=== PATIENT | male | born 1945 | race Caucasian/White ===

== ENCOUNTER 2017-04-16 17:16 | Inpatient (IN) | payer MEDICARE, BC ==
[~2017-04-16] VITALS: Ht 180.3 cm; Wt 127.7 kg
[2017-04-16] MEDS ORDERED: methylPREDNISolone sod succ 125mg/2ml vial IV ONE (17:30)
[2017-04-16] MEDS ORDERED: ipratropium/albuterol 3ml nebule NEB ONE (17:30)
[2017-04-16 18:00] LABS: ABG BASE EXCESS -3.3 mmol/L (-2.0-3.0); ABG HCO3 24.1 mmol/L (22.0-26.0); ABG PCO2 (T) 53.4 mmHg (35.0-48.0); ABG PH (T) 7.272 (7.350-7.450); ABG PO2 (T) 67.9 mmHg (83-108); ALLEN'S TEST Positive; FCOHb 1.7 % (0.5-1.5); FMetHb 0.3 % (0.3-1.12); FO2Hb 90.2 % (94-100); PEEP 8 cm H2O; TOTAL HEMOGLOBIN 12.5 G/dl (14.0-18.0)
[2017-04-16 19:05] LABS: ALANINE AMINOTRANSFERASE 20 U/L (12-78); ALBUMIN 3.9 G/DL (3.4-5.0); ALBUMIN/GLOBULIN RATIO 1.1 (1.1-1.5); ALKALINE PHOSPHATASE 65 IU/L (46-116); ANION GAP 16 (8-16); ASPARTATE AMINO TRANSFERASE 22 U/L (10-37); BILIRUBIN,TOTAL 0.7 MG/DL (0.1-1.0); BLOOD UREA NITROGEN 44 MG/DL (7-18); BUN/CREATININE RATIO 3.9 (5.4-32.0); CALCIUM 9.1 MG/DL (8.5-10.1); CHLORIDE 103 MMOL/L (99-107); CREATININE 11.31 MG/DL (0.60-1.10); GLUCOSE 51 MG/DL (70-104); SODIUM 145 MMOL/L (135-145); TOTAL PROTEIN 7.5 G/DL (6.4-8.2); eGFR 4 ML/MIN
[2017-04-16 19:14] LABS: POTASSIUM 6.1 MMOL/L (3.5-5.1)
[2017-04-16] MEDS ORDERED: hydrALAZINE 20mg/ml inj. IV ONE (19:30)
[2017-04-16] MEDS ORDERED: nitroGLYCERIN 0.4mg/hour patch TD ONE (19:30)
[2017-04-16] MEDS ORDERED: NIFEdipine XL 30mg tablet PO STA (20:00)
[2017-04-16] MEDS ORDERED: acetaminophen 325mg tablet PO PRN ×2 (20:05)
[2017-04-16] MEDS ORDERED: HYDROcodone/acetaminophen 10/325mg tab PO PRN (20:05)
[2017-04-16] MEDS ORDERED: ondansetron/PF 4mg/2ml inj IV PRN (20:05)
[2017-04-16] MEDS ORDERED: hydrALAZINE 20mg/ml inj. IV PRN (20:05)
[2017-04-16 20:40] LABS: BASOPHILS % (AUTO) 0 % (0-1); EOSINOPHILS # (AUTO) 0.1 X10'3 (0-0.9); EOSINOPHILS % (AUTO) 1.6 % (0-6); HEMATOCRIT 36.3 % (42.0-52.0); HEMOGLOBIN 12.3 g/dl (14.0-17.9); LYMPHOCYTES # (AUTO) 0.2 X10'3 (1.1-4.8); LYMPHOCYTES % (AUTO) 3.9 % (21-51); MEAN PLATELET VOLUME 6.5 FL (7.4-10.4); MONOCYTES # (AUTO) 0.1 X10'3 (0-0.9); MONOCYTES % (AUTO) 1.8 % (2-12); NEUTROPHILS # (AUTO) 5.6 X10'3 (1.8-7.7); NEUTROPHILS % (AUTO) 92.7 % (42-75); PLATELET COUNT 166 X10'3 (140-440); RED BLOOD COUNT 3.74 X10'6 (4.70-6.10); RED CELL DISTRIBUTION WIDTH 16.7 % (11.5-14.5); WHITE BLOOD COUNT 6.1 X10'3 (4.5-11.0)
[2017-04-16 20:53] LABS: PARTIAL THROMBOPLASTIN TIME 31 SECONDS (22-32); PROTHROMBIN TIME 10.7 SECONDS (9.0-12.0)
[2017-04-16 20:55] VITALS: BP 173/75
[2017-04-16] MEDS: albuterol 2.5 MG/3 ML nebule NEB PRN (21:44)
[2017-04-16 22:00] VITALS: BP_SYST 146; BP_SYST 151; BP_DIAS 69; BP_DIAS 84
[2017-04-16] MEDS ORDERED: OMEP40CA37 PO (22:10)
[2017-04-16] MEDS ORDERED: MULT-1161 (22:10)
[2017-04-16] MEDS ORDERED: LOSA100T28 PO (22:10)
[2017-04-16] MEDS ORDERED: NIFE30TA95 PO (22:10)
[2017-04-16] MEDS ORDERED: BUME2TAB3 PO (22:10)
[2017-04-16] MEDS ORDERED: GLIP10TA11 PO (22:10)
[2017-04-16] MEDS ORDERED: ALBU18HF2 INH (22:10)
[2017-04-16 23:09] LABS: HEMOGLOBIN A1C 7.8 % (4.5-6.2)
[2017-04-17 02:00] VITALS: BP 166/76
[2017-04-17 06:00] VITALS: BP 168/77
[2017-04-17 06:33] LABS: BASOPHILS % (AUTO) 0.1 % (0-1); EOSINOPHILS # (AUTO) 0.1 X10'3 (0-0.9); EOSINOPHILS % (AUTO) 1.1 % (0-6); HEMATOCRIT 33.8 % (42.0-52.0); HEMOGLOBIN 11.4 g/dl (14.0-17.9); LYMPHOCYTES # (AUTO) 0.2 X10'3 (1.1-4.8); LYMPHOCYTES % (AUTO) 4.3 % (21-51); MEAN CORPUSCULAR HEMOGLOBIN 33.3 PG (27.0-31.0); MEAN CORPUSCULAR HGB CONC 33.8 % (33.0-36.5); MEAN CORPUSCULAR VOLUME 98.4 FL (78-98); MEAN PLATELET VOLUME 6.9 FL (7.4-10.4); MONOCYTES # (AUTO) 0.1 X10'3 (0-0.9); MONOCYTES % (AUTO) 2.6 % (2-12); NEUTROPHILS # (AUTO) 4.9 X10'3 (1.8-7.7); NEUTROPHILS % (AUTO) 91.9 % (42-75); PLATELET COUNT 150 X10'3 (140-440); RED BLOOD COUNT 3.43 X10'6 (4.70-6.10); RED CELL DISTRIBUTION WIDTH 16.7 % (11.5-14.5); WHITE BLOOD COUNT 5.3 X10'3 (4.5-11.0)
[2017-04-17] MEDS ORDERED: non-formulary drug (Albuterol Sulfate (Ventolin Hfa) 2 PUFFS) INH SCH (06:35)
[2017-04-17 06:46] LABS: ALANINE AMINOTRANSFERASE 25 U/L (12-78); ALBUMIN 3.7 G/DL (3.4-5.0); ALBUMIN/GLOBULIN RATIO 1.1 (1.1-1.5); ALKALINE PHOSPHATASE 59 IU/L (46-116); ANION GAP 18 (8-16); ASPARTATE AMINO TRANSFERASE 18 U/L (10-37); BILIRUBIN,TOTAL 0.8 MG/DL (0.1-1.0); BLOOD UREA NITROGEN 55 MG/DL (7-18); BUN/CREATININE RATIO 4.6 (5.4-32.0); CALCIUM 8.3 MG/DL (8.5-10.1); CHLORIDE 100 MMOL/L (99-107); CREATININE 11.97 MG/DL (0.60-1.10); GLUCOSE 250 MG/DL (70-104); MAGNESIUM 2.2 MG/DL (1.5-2.4); PHOSPHORUS 8.3 MG/DL (2.3-4.5); SODIUM 141 MMOL/L (135-145); TOTAL CARBON DIOXIDE 22.8 MMOL/L (24-32); TOTAL PROTEIN 7.2 G/DL (6.4-8.2); eGFR 4 ML/MIN
[2017-04-17 07:15] LABS: POTASSIUM 7.4 MMOL/L (3.5-5.1)
[2017-04-17] MEDS ORDERED: insulin regular, human 10 units/0.1 ml syringe IV STA (07:22)
[2017-04-17] MEDS ORDERED: sodium bicarbonate (8.4%) 1 mEq/ml syringe IV STA (07:22)
[2017-04-17] MEDS ORDERED: sodium polystyrene sulfonate 15gm/60ml oral suspension PO STA (07:22)
[2017-04-17] MEDS ORDERED: dextrose 50%-water 50ml dispensing syringe IV STA (07:22)
[2017-04-17] MEDS ORDERED: albuterol 2.5 MG/3 ML nebule CONTNEB SCH (07:25)
[2017-04-17] MEDS ORDERED: LIDOcaine 1% (10mg/ml) 2ml vial SQ ONE (07:30)
[2017-04-17] MEDS: bumetanide 1mg tablet PO SCH ×3 (08:00→20:11)
[2017-04-17] MEDS: losartan 50mg tablet PO SCH (08:00)
[2017-04-17] MEDS: albuterol 2.5 MG/3 ML nebule NEB SCH ×3 (08:07→10:25)
[2017-04-17] MEDS: pantoprazole 40mg Tablet.DR PO SCH (08:47)
[2017-04-17] MEDS: glipizide 5mg tablet PO SCH ×2 (10:10→20:11)
[2017-04-17 11:00] VITALS: BP 113/67
[2017-04-17 15:00] VITALS: BP 125/73
[2017-04-17 18:00] VITALS: BP 157/72
[2017-04-17] MEDS ORDERED: NIFEdipine XL 30mg tablet PO SCH (21:00)
[2017-04-17 22:00] VITALS: BP 163/78
[2017-04-17] MEDS: albuterol 2.5 MG/3 ML nebule NEB PRN (22:33)
[2017-04-18 02:00] VITALS: BP 136/73
[2017-04-18 06:00] VITALS: BP 138/68
[2017-04-18 07:26] LABS: BASOPHILS % (AUTO) 0.2 % (0-1); EOSINOPHILS # (AUTO) 0.1 X10'3 (0-0.9); EOSINOPHILS % (AUTO) 1.6 % (0-6); HEMATOCRIT 35.8 % (42.0-52.0); HEMOGLOBIN 11.9 g/dl (14.0-17.9); LYMPHOCYTES # (AUTO) 0.5 X10'3 (1.1-4.8); LYMPHOCYTES % (AUTO) 10.6 % (21-51); MEAN CORPUSCULAR HEMOGLOBIN 32.6 PG (27.0-31.0); MEAN CORPUSCULAR HGB CONC 33.2 % (33.0-36.5); MEAN CORPUSCULAR VOLUME 98.1 FL (78-98); MEAN PLATELET VOLUME 6.6 FL (7.4-10.4); MONOCYTES # (AUTO) 0.5 X10'3 (0-0.9); MONOCYTES % (AUTO) 10.2 % (2-12); NEUTROPHILS # (AUTO) 3.5 X10'3 (1.8-7.7); NEUTROPHILS % (AUTO) 77.4 % (42-75); PLATELET COUNT 155 X10'3 (140-440); RED BLOOD COUNT 3.65 X10'6 (4.70-6.10); RED CELL DISTRIBUTION WIDTH 16.6 % (11.5-14.5); WHITE BLOOD COUNT 4.5 X10'3 (4.5-11.0)
[2017-04-18] MEDS: losartan 50mg tablet PO SCH (07:41)
[2017-04-18] MEDS: bumetanide 1mg tablet PO SCH ×2 (07:41→13:07)
[2017-04-18] MEDS: pantoprazole 40mg Tablet.DR PO SCH (07:41)
[2017-04-18 07:44] LABS: ALANINE AMINOTRANSFERASE 42 U/L (12-78); ALBUMIN 3.4 G/DL (3.4-5.0); ALBUMIN/GLOBULIN RATIO 1.1 (1.1-1.5); ALKALINE PHOSPHATASE 52 IU/L (46-116); ANION GAP 14 (8-16); ASPARTATE AMINO TRANSFERASE 34 U/L (10-37); BILIRUBIN,TOTAL 0.5 MG/DL (0.1-1.0); BLOOD UREA NITROGEN 42 MG/DL (7-18); BUN/CREATININE RATIO 4.7 (5.4-32.0); CHLORIDE 101 MMOL/L (99-107); CREATININE 8.97 MG/DL (0.60-1.10); GLUCOSE 120 MG/DL (70-104); MAGNESIUM 2.1 MG/DL (1.5-2.4); PHOSPHORUS 7.4 MG/DL (2.3-4.5); POTASSIUM 4.7 MMOL/L (3.5-5.1); SODIUM 143 MMOL/L (135-145); TOTAL CARBON DIOXIDE 28.3 MMOL/L (24-32); TOTAL PROTEIN 6.6 G/DL (6.4-8.2); eGFR 6 ML/MIN
[2017-04-18] MEDS: glipizide 5mg tablet PO SCH (07:59)
[2017-04-18 11:00] VITALS: BP 138/77
[2017-04-18] MEDS: albuterol 2.5 MG/3 ML nebule NEB PRN (12:01)
== END 2017-04-18 15:10 | disposition home or self-care (01) | DRG 682 ==
LOC: ER 17:17 → PCU 3S 20:13
PROVIDERS: ADMIT Internal Medicine Critical Care Medicine
PROC: 5A1D70Z Performance of Urinary Filtration, Intermittent, Less than 6 Hours Per Day (ICD-10-PCS; principal; 2017-04-17)
DX: I12.0 Hypertensive chronic kidney disease with stage 5 chronic kidney disease or end stage renal disease (principal); N18.6 End stage renal disease; J96.01 Acute respiratory failure with hypoxia; J81.0 Acute pulmonary edema; J44.1 Chronic obstructive pulmonary disease with (acute) exacerbation; E87.5 Hyperkalemia; E87.70 Fluid overload, unspecified; J06.9 Acute upper respiratory infection, unspecified; E11.22 Type 2 diabetes mellitus with diabetic chronic kidney disease; Z99.2 Dependence on renal dialysis; Z91.15 Patient's noncompliance with renal dialysis; Z79.84 Long term (current) use of oral hypoglycemic drugs; Z79.899 Other long term (current) drug therapy; Z87.891 Personal history of nicotine dependence
CPT/HCPCS: 36415; 36600; 71045; 80053; 82803; 82948; 83036; 83605; 83735; 83880; 84100; 84132; 84484; 85018; 85025; 85610; 85730; 87040; 87070; 87502; 87503; 93005; 94640; 94760; 96374; 96375; 99285; A6402; G0257; J0360; J1815; J2930; J3490; J7030

== ENCOUNTER 2017-04-19 22:50 | Inpatient (IN) | payer MEDICARE, BC ==
[~2017-04-19] VITALS: Ht 180.3 cm; Wt 122.0 kg
[~2017-04-19 22:50] MED LIST: ALBU18HF2 INH; BUME2TAB3 PO; GLIP10TA11 PO; LOSA100T28 PO; MULT-1161; NIFE30TA95 PO; OMEP40CA37 PO
[2017-04-19] MEDS ORDERED: ipratropium/albuterol 3ml nebule NEB ONE (23:00)
[2017-04-19] MEDS ORDERED: methylPREDNISolone sod succ 125mg/2ml vial IV ONE (23:05)
[2017-04-19] MEDS ORDERED: dextrose 50%-water 50ml dispensing syringe IV ONE (23:05)
[2017-04-19 23:33] LABS: BASOPHILS % (AUTO) 0.2 % (0-1); EOSINOPHILS # (AUTO) 0.1 X10'3 (0-0.9); EOSINOPHILS % (AUTO) 1.7 % (0-6); HEMATOCRIT 35.9 % (42.0-52.0); HEMOGLOBIN 12.2 g/dl (14.0-17.9); LYMPHOCYTES # (AUTO) 0.4 X10'3 (1.1-4.8); LYMPHOCYTES % (AUTO) 4.8 % (21-51); MEAN CORPUSCULAR HEMOGLOBIN 33.1 PG (27.0-31.0); MEAN CORPUSCULAR VOLUME 97.3 FL (78-98); MEAN PLATELET VOLUME 6.8 FL (7.4-10.4); MONOCYTES # (AUTO) 0.5 X10'3 (0-0.9); MONOCYTES % (AUTO) 6.8 % (2-12); NEUTROPHILS # (AUTO) 6.9 X10'3 (1.8-7.7); NEUTROPHILS % (AUTO) 86.5 % (42-75); PLATELET COUNT 165 X10'3 (140-440); RED CELL DISTRIBUTION WIDTH 16.7 % (11.5-14.5)
[2017-04-20 00:08] LABS: ALANINE AMINOTRANSFERASE 27 U/L (12-78); ALBUMIN 3.5 G/DL (3.4-5.0); ALBUMIN/GLOBULIN RATIO 0.9 (1.1-1.5); ALKALINE PHOSPHATASE 65 IU/L (46-116); ANION GAP 19 (8-16); ASPARTATE AMINO TRANSFERASE 18 U/L (10-37); BILIRUBIN,TOTAL 0.5 MG/DL (0.1-1.0); BLOOD UREA NITROGEN 66 MG/DL (7-18); BUN/CREATININE RATIO 5.5 (5.4-32.0); CALCIUM 8.4 MG/DL (8.5-10.1); CHLORIDE 101 MMOL/L (99-107); CREATININE 12.04 MG/DL (0.60-1.10); GLUCOSE 53 MG/DL (70-104); MAGNESIUM 2.3 MG/DL (1.5-2.4); POTASSIUM 4.3 MMOL/L (3.5-5.1); SODIUM 144 MMOL/L (135-145); TOTAL CARBON DIOXIDE 24.5 MMOL/L (24-32); TOTAL PROTEIN 7.4 G/DL (6.4-8.2); eGFR 4 ML/MIN
[2017-04-20 00:16] LABS: PARTIAL THROMBOPLASTIN TIME 32 SECONDS (22-32); PROTHROMBIN TIME 10.7 SECONDS (9.0-12.0)
[2017-04-20 00:20] LABS: CLARITY,URINE SLIGHTLY CLOUDY (Clear); COLOR,URINE YELLOW (Yellow); GLUCOSE, URINE NEGATIVE (Neg); KETONES,URINE NEGATIVE (Neg); LEUKOCYTE ESTERASE ,URINE NEGATIVE (Neg); NITRITES, URINE NEGATIVE (Neg); OCCULT BLOOD,URINE MODERATE (Neg); PROTEIN,URINE 100 mg/dl (Neg); UROBILINOGEN,URINE 0.2 E.U/dL (0.2-1.0)
[2017-04-20 00:25] LABS: UA COLLECTION TYPE STRAIGHT CATH
[2017-04-20 00:27] LABS: WBC,URINE NONE SEEN /HPF (0-4)
[2017-04-20 00:28] LABS: AMORPHOUS URATES 2+; BACTERIA,URINE NONE SEEN /HPF (Neg); MUCUS STRANDS NONE SEEN /LPF (Neg); SQUAMOUS EPITHELIAL CELL,UR FEW /LPF (FEW); TRANSITIONAL EPI CELLS,URINE FEW /HPF
[2017-04-20] MEDS ORDERED: dextrose ORAL solution 15 GM/59 ML bottle PO PRN ×2 (02:05)
[2017-04-20] MEDS ORDERED: dextrose 50%-water 50ml dispensing syringe IV PRN ×2 (02:05)
[2017-04-20] MEDS ORDERED: glucagon, human recombinant 1mg kit SUBCUT PRN (02:05)
[2017-04-20] MEDS ORDERED: MESSAGE TO PHARMACY PO ONE (02:05)
[2017-04-20] MEDS ORDERED: nitroGLYCERIN 1gm ointment UD TP ONE (02:10)
[2017-04-20] MEDS: bumetanide 1mg tablet PO SCH (07:32)
[2017-04-20] MEDS: losartan 50mg tablet PO SCH (07:32)
[2017-04-20] MEDS: heparin, porcine 5000 units/ml vial SQ SCH ×2 (07:33→20:43)
[2017-04-20] MEDS ORDERED: dextrose 50%-water 50ml dispensing syringe IV ONE (08:00)
[2017-04-20 08:59] LABS: C DIFFICILE TOXINS A&B NEGATIVE (Neg)
[2017-04-20 09:00] LABS: C DIFF ANTIGEN NEGATIVE (NEGATIVE); C DIFF SPECIMEN=DIARRHEA? ACCEPTABLE
[2017-04-20 11:20] VITALS: BP 164/77
[2017-04-20] MEDS: insulin Lispro (HumaLOG) vial - multi-dose SQ SCH ×2 (12:56→18:40)
[2017-04-20] MEDS ORDERED: heparin 1,000unit/ml 10ml vial 10 ML IV ONE (14:59)
[2017-04-20] MEDS ORDERED: normal saline 1000ml 250 ML IV PRN (14:59)
[2017-04-20 15:00] VITALS: BP 156/71
[2017-04-20] MEDS ORDERED: LIDOcaine 1% (10mg/ml) 2ml vial SQ ONE (15:00)
[2017-04-20] MEDS ORDERED: epoetin 20,000 units/ml inj IV ONE (15:00)
[2017-04-20] MEDS ORDERED: heparin 1,000 units/ml 10ml inj HE ONE ×2 (15:05)
[2017-04-20 15:51] LABS: BASOPHILS % (AUTO) 0 % (0-1); EOSINOPHILS # (AUTO) 0.1 X10'3 (0-0.9); EOSINOPHILS % (AUTO) 1.2 % (0-6); HEMATOCRIT 33.1 % (42.0-52.0); HEMOGLOBIN 11.3 g/dl (14.0-17.9); LYMPHOCYTES # (AUTO) 0.3 X10'3 (1.1-4.8); LYMPHOCYTES % (AUTO) 4.2 % (21-51); MEAN CORPUSCULAR HGB CONC 34.2 % (33.0-36.5); MEAN CORPUSCULAR VOLUME 96.3 FL (78-98); MEAN PLATELET VOLUME 6.9 FL (7.4-10.4); MONOCYTES # (AUTO) 0.2 X10'3 (0-0.9); MONOCYTES % (AUTO) 3.5 % (2-12); NEUTROPHILS # (AUTO) 6.3 X10'3 (1.8-7.7); NEUTROPHILS % (AUTO) 91.1 % (42-75); PLATELET COUNT 171 X10'3 (140-440); RED BLOOD COUNT 3.43 X10'6 (4.70-6.10); RED CELL DISTRIBUTION WIDTH 16.7 % (11.5-14.5)
[2017-04-20 18:00] VITALS: BP 155/84
[2017-04-20] MEDS: NIFEdipine XL 30mg tablet PO SCH (20:42)
[2017-04-20 22:00] VITALS: BP 151/72
[2017-04-21 02:00] VITALS: BP 103/58
[2017-04-21 05:58] LABS: INR 1.1 INR; PARTIAL THROMBOPLASTIN TIME 28 SECONDS (22-32); PROTHROMBIN TIME 10.9 SECONDS (9.0-12.0)
[2017-04-21 06:01] LABS: BASOPHILS % (AUTO) 0.1 % (0-1); EOSINOPHILS # (AUTO) 0.1 X10'3 (0-0.9); HEMATOCRIT 33.7 % (42.0-52.0); HEMOGLOBIN 11.4 g/dl (14.0-17.9); LYMPHOCYTES # (AUTO) 0.7 X10'3 (1.1-4.8); LYMPHOCYTES % (AUTO) 9.1 % (21-51); MEAN CORPUSCULAR HEMOGLOBIN 33.8 PG (27.0-31.0); MEAN CORPUSCULAR VOLUME 99.6 FL (78-98); MEAN PLATELET VOLUME 7.6 FL (7.4-10.4); MONOCYTES # (AUTO) 0.7 X10'3 (0-0.9); NEUTROPHILS # (AUTO) 6.7 X10'3 (1.8-7.7); NEUTROPHILS % (AUTO) 81.8 % (42-75); PLATELET COUNT 123 X10'3 (140-440); RED BLOOD COUNT 3.38 X10'6 (4.70-6.10); RED CELL DISTRIBUTION WIDTH 16.9 % (11.5-14.5); WHITE BLOOD COUNT 8.1 X10'3 (4.5-11.0)
[2017-04-21 06:20] LABS: ALANINE AMINOTRANSFERASE 28 U/L (12-78); ALBUMIN 3.3 G/DL (3.4-5.0); ALBUMIN/GLOBULIN RATIO 0.9 (1.1-1.5); ALKALINE PHOSPHATASE 55 IU/L (46-116); ANION GAP 18 (8-16); ASPARTATE AMINO TRANSFERASE 15 U/L (10-37); BILIRUBIN,TOTAL 0.5 MG/DL (0.1-1.0); BLOOD UREA NITROGEN 61 MG/DL (7-18); BUN/CREATININE RATIO 6.2 (5.4-32.0); CALCIUM 7.7 MG/DL (8.5-10.1); CHLORIDE 98 MMOL/L (99-107); CHOL/HDL RATIO 2.2 (0.00-4.99); CHOLESTEROL 119 MG/DL (0-200); CREATININE 9.79 MG/DL (0.60-1.10); GLUCOSE 141 MG/DL (70-104); HDL CHOLESTEROL 53 MG/DL (35-60); LDL CHOLESTEROL 50 MG/DL (50-100); MAGNESIUM 2.2 MG/DL (1.5-2.4); POTASSIUM 4.4 MMOL/L (3.5-5.1); SODIUM 140 MMOL/L (135-145); TOTAL CARBON DIOXIDE 24.3 MMOL/L (24-32); TOTAL PROTEIN 7.1 G/DL (6.4-8.2); TRIGLYCERIDES 95 MG/DL (20-135); eGFR 5 ML/MIN
[2017-04-21 07:00] VITALS: BP 150/81
[2017-04-21] MEDS: bumetanide 1mg tablet PO SCH (08:37)
[2017-04-21] MEDS: losartan 50mg tablet PO SCH (08:38)
[2017-04-21] MEDS: heparin, porcine 5000 units/ml vial SQ SCH ×2 (08:40→20:40)
[2017-04-21] MEDS: insulin Lispro (HumaLOG) vial - multi-dose SQ SCH (08:43)
[2017-04-21 11:00] VITALS: BP 177/60
[2017-04-21 15:00] VITALS: BP 133/69
[2017-04-21 19:00] VITALS: BP 129/84
[2017-04-21] MEDS: albuterol 2.5 MG/3 ML nebule NEB PRN (19:58)
[2017-04-21] MEDS: NIFEdipine XL 30mg tablet PO SCH (20:40)
[2017-04-21] MEDS ORDERED: bumetanide 1mg tablet PO STA (21:51)
[2017-04-21] MEDS ORDERED: nitroGLYCERIN 1gm ointment UD TP ONE (22:15)
[2017-04-21] MEDS: methylPREDNISolone sod succ 125mg/2ml vial IV SCH (22:59)
[2017-04-21 23:00] VITALS: BP 104/62
[2017-04-22] MEDS: levoFLOXACIN-Levaquin 250mg/D5 50 ML IV SCH (00:53)
[2017-04-22 03:00] VITALS: BP 177/77
[2017-04-22 05:51] LABS: BASOPHILS % (AUTO) 0.2 % (0-1); EOSINOPHILS # (AUTO) 0.1 X10'3 (0-0.9); EOSINOPHILS % (AUTO) 1.6 % (0-6); HEMATOCRIT 36.4 % (42.0-52.0); HEMOGLOBIN 12.5 g/dl (14.0-17.9); LYMPHOCYTES # (AUTO) 0.3 X10'3 (1.1-4.8); LYMPHOCYTES % (AUTO) 3.8 % (21-51); MEAN CORPUSCULAR HEMOGLOBIN 33.5 PG (27.0-31.0); MEAN CORPUSCULAR HGB CONC 34.4 % (33.0-36.5); MEAN CORPUSCULAR VOLUME 97.3 FL (78-98); MEAN PLATELET VOLUME 6.6 FL (7.4-10.4); MONOCYTES # (AUTO) 0.1 X10'3 (0-0.9); MONOCYTES % (AUTO) 1.4 % (2-12); NEUTROPHILS # (AUTO) 8.2 X10'3 (1.8-7.7); PLATELET COUNT 205 X10'3 (140-440); RED BLOOD COUNT 3.74 X10'6 (4.70-6.10); RED CELL DISTRIBUTION WIDTH 16.5 % (11.5-14.5); WHITE BLOOD COUNT 8.9 X10'3 (4.5-11.0)
[2017-04-22 05:58] LABS: PARTIAL THROMBOPLASTIN TIME 27 SECONDS (22-32); PROTHROMBIN TIME 10.7 SECONDS (9.0-12.0)
[2017-04-22 06:13] LABS: ALANINE AMINOTRANSFERASE 30 U/L (12-78); ALBUMIN 3.8 G/DL (3.4-5.0); ALBUMIN/GLOBULIN RATIO 0.9 (1.1-1.5); ALKALINE PHOSPHATASE 69 IU/L (46-116); ANION GAP 18 (8-16); ASPARTATE AMINO TRANSFERASE 16 U/L (10-37); BILIRUBIN,TOTAL 0.5 MG/DL (0.1-1.0); BLOOD UREA NITROGEN 82 MG/DL (7-18); BUN/CREATININE RATIO 7.3 (5.4-32.0); CALCIUM 8.1 MG/DL (8.5-10.1); CHLORIDE 95 MMOL/L (99-107); CREATININE 11.26 MG/DL (0.60-1.10); GLUCOSE 259 MG/DL (70-104); MAGNESIUM 2.3 MG/DL (1.5-2.4); POTASSIUM 5.9 MMOL/L (3.5-5.1); SODIUM 137 MMOL/L (135-145); TOTAL CARBON DIOXIDE 23.8 MMOL/L (24-32); eGFR 5 ML/MIN
[2017-04-22 07:00] VITALS: BP 149/71
[2017-04-22] MEDS: insulin Lispro (HumaLOG) vial - multi-dose SQ SCH ×3 (07:50→20:59)
[2017-04-22] MEDS: methylPREDNISolone sod succ 125mg/2ml vial IV SCH ×2 (07:53→20:56)
[2017-04-22] MEDS: cefepime 1GM/NS ADD-VANTAGE 100 ML IV SCH (07:53)
[2017-04-22] MEDS: losartan 50mg tablet PO SCH (07:55)
[2017-04-22] MEDS: heparin, porcine 5000 units/ml vial SQ SCH ×2 (07:55→20:56)
[2017-04-22] MEDS: bumetanide 1mg tablet PO SCH (07:55)
[2017-04-22] MEDS ORDERED: LIDOcaine 1% (10mg/ml) 2ml vial SQ ONE (08:00)
[2017-04-22] MEDS ORDERED: heparin 1,000 units/ml 10ml inj IV ONE (08:00)
[2017-04-22] MEDS ORDERED: normal saline 1000ml 250 ML IV PRN (08:00)
[2017-04-22] MEDS ORDERED: heparin 1,000unit/ml 10ml vial 10 ML IV ONE (08:00)
[2017-04-22] MEDS ORDERED: epoetin 20,000 units/ml inj IV ONE (08:00)
[2017-04-22 11:00] VITALS: BP 165/79
[2017-04-22 15:00] VITALS: BP 201/95
[2017-04-22] MEDS: lactobacillus rhamnosus 10,000 MMU CELLS/CAPSULE PO SCH (17:03)
[2017-04-22] MEDS: albuterol 2.5 MG/3 ML nebule NEB PRN ×2 (17:23→20:51)
[2017-04-22 19:00] VITALS: BP 139/74
[2017-04-22] MEDS: NIFEdipine XL 30mg tablet PO SCH (20:55)
[2017-04-22 23:00] VITALS: BP 133/69
[2017-04-23 03:00] VITALS: BP 147/89
[2017-04-23 06:03] LABS: BASOPHILS % (AUTO) 0 % (0-1); EOSINOPHILS # (AUTO) 0.1 X10'3 (0-0.9); EOSINOPHILS % (AUTO) 1.9 % (0-6); HEMATOCRIT 35.1 % (42.0-52.0); HEMOGLOBIN 11.9 g/dl (14.0-17.9); LYMPHOCYTES # (AUTO) 0.3 X10'3 (1.1-4.8); LYMPHOCYTES % (AUTO) 4.2 % (21-51); MEAN CORPUSCULAR HEMOGLOBIN 33.1 PG (27.0-31.0); MEAN CORPUSCULAR HGB CONC 33.9 % (33.0-36.5); MEAN CORPUSCULAR VOLUME 97.5 FL (78-98); MEAN PLATELET VOLUME 6.4 FL (7.4-10.4); MONOCYTES # (AUTO) 0.2 X10'3 (0-0.9); MONOCYTES % (AUTO) 3.3 % (2-12); NEUTROPHILS # (AUTO) 6.6 X10'3 (1.8-7.7); NEUTROPHILS % (AUTO) 90.6 % (42-75); PLATELET COUNT 185 X10'3 (140-440); RED CELL DISTRIBUTION WIDTH 16.3 % (11.5-14.5); WHITE BLOOD COUNT 7.3 X10'3 (4.5-11.0)
[2017-04-23 06:37] LABS: ALANINE AMINOTRANSFERASE 26 U/L (12-78); ALBUMIN 3.4 G/DL (3.4-5.0); ALBUMIN/GLOBULIN RATIO 0.9 (1.1-1.5); ALKALINE PHOSPHATASE 55 IU/L (46-116); ANION GAP 12 (8-16); ASPARTATE AMINO TRANSFERASE 12 U/L (10-37); BILIRUBIN,TOTAL 0.4 MG/DL (0.1-1.0); BLOOD UREA NITROGEN 51 MG/DL (7-18); BUN/CREATININE RATIO 6.7 (5.4-32.0); CALCIUM 7.9 MG/DL (8.5-10.1); CHLORIDE 98 MMOL/L (99-107); CREATININE 7.59 MG/DL (0.60-1.10); GLUCOSE 189 MG/DL (70-104); MAGNESIUM 2.4 MG/DL (1.5-2.4); POTASSIUM 4.6 MMOL/L (3.5-5.1); SODIUM 139 MMOL/L (135-145); TOTAL PROTEIN 7.1 G/DL (6.4-8.2); eGFR 7 ML/MIN
[2017-04-23 07:07] LABS: INR 1.1 INR; PARTIAL THROMBOPLASTIN TIME 30 SECONDS (22-32); PROTHROMBIN TIME 11.4 SECONDS (9.0-12.0)
[2017-04-23] MEDS: heparin, porcine 5000 units/ml vial SQ SCH ×2 (08:00→20:35)
[2017-04-23] MEDS ORDERED: levoFLOXACIN-Levaquin 250mg/D5 50 ML IV SCH (08:00)
[2017-04-23] MEDS: insulin Lispro (HumaLOG) vial - multi-dose SQ SCH ×3 (08:13→20:37)
[2017-04-23] MEDS: lactobacillus rhamnosus 10,000 MMU CELLS/CAPSULE PO SCH ×2 (08:15→17:20)
[2017-04-23] MEDS: losartan 50mg tablet PO SCH (08:16)
[2017-04-23] MEDS: bumetanide 1mg tablet PO SCH (08:16)
[2017-04-23] MEDS: cefepime 1GM/NS ADD-VANTAGE 100 ML IV SCH (08:17)
[2017-04-23] MEDS: methylPREDNISolone sod succ 125mg/2ml vial IV SCH (08:17)
[2017-04-23 11:00] VITALS: BP 156/85
[2017-04-23 19:00] VITALS: BP 170/84
[2017-04-23] MEDS: NIFEdipine XL 30mg tablet PO SCH (20:34)
[2017-04-23 23:00] VITALS: BP 144/66
[2017-04-23] MEDS: levoFLOXACIN-Levaquin 250mg/D5 50 ML IV SCH (23:56)
[2017-04-24 03:00] VITALS: BP 154/70
[2017-04-24 06:00] VITALS: BP 145/66
[2017-04-24 06:41] LABS: BASOPHILS % (AUTO) 0.1 % (0-1); EOSINOPHILS # (AUTO) 0.1 X10'3 (0-0.9); EOSINOPHILS % (AUTO) 1.5 % (0-6); HEMOGLOBIN 12.1 g/dl (14.0-17.9); LYMPHOCYTES # (AUTO) 0.7 X10'3 (1.1-4.8); LYMPHOCYTES % (AUTO) 9.2 % (21-51); MEAN CORPUSCULAR HEMOGLOBIN 32.6 PG (27.0-31.0); MEAN CORPUSCULAR HGB CONC 33.6 % (33.0-36.5); MEAN PLATELET VOLUME 6.7 FL (7.4-10.4); MONOCYTES # (AUTO) 0.6 X10'3 (0-0.9); NEUTROPHILS # (AUTO) 6.5 X10'3 (1.8-7.7); NEUTROPHILS % (AUTO) 81.2 % (42-75); PLATELET COUNT 176 X10'3 (140-440); RED BLOOD COUNT 3.71 X10'6 (4.70-6.10); RED CELL DISTRIBUTION WIDTH 16.2 % (11.5-14.5)
[2017-04-24 06:53] LABS: INR 1.1 INR; PROTHROMBIN TIME 11.1 SECONDS (9.0-12.0)
[2017-04-24 06:55] LABS: ALANINE AMINOTRANSFERASE 33 U/L (12-78); ALBUMIN 3.2 G/DL (3.4-5.0); ALKALINE PHOSPHATASE 50 IU/L (46-116); ANION GAP 15 (8-16); ASPARTATE AMINO TRANSFERASE 15 U/L (10-37); BILIRUBIN,TOTAL 0.4 MG/DL (0.1-1.0); BLOOD UREA NITROGEN 83 MG/DL (7-18); BUN/CREATININE RATIO 8.8 (5.4-32.0); CHLORIDE 98 MMOL/L (99-107); GLUCOSE 100 MG/DL (70-104); MAGNESIUM 2.6 MG/DL (1.5-2.4); POTASSIUM 4.3 MMOL/L (3.5-5.1); SODIUM 140 MMOL/L (135-145); TOTAL CARBON DIOXIDE 27.2 MMOL/L (24-32); TOTAL PROTEIN 6.5 G/DL (6.4-8.2); eGFR 6 ML/MIN
[2017-04-24] MEDS: lactobacillus rhamnosus 10,000 MMU CELLS/CAPSULE PO SCH ×2 (07:59→17:11)
[2017-04-24] MEDS ORDERED: epoetin 20,000 units/ml inj IV ONE (08:00)
[2017-04-24] MEDS ORDERED: LIDOcaine 1% (10mg/ml) 2ml vial SQ ONE (08:00)
[2017-04-24] MEDS ORDERED: normal saline 1000ml 250 ML IV PRN (08:00)
[2017-04-24] MEDS: methylPREDNISolone sod succ 125mg/2ml vial IV SCH (08:00)
[2017-04-24] MEDS ORDERED: heparin 1,000 units/ml 10ml inj IV ONE (08:00)
[2017-04-24] MEDS ORDERED: heparin 1,000unit/ml 10ml vial 10 ML IV ONE (08:00)
[2017-04-24] MEDS: heparin, porcine 5000 units/ml vial SQ SCH ×2 (08:01→19:37)
[2017-04-24] MEDS: cefepime 1GM/NS ADD-VANTAGE 100 ML IV SCH (08:02)
[2017-04-24] MEDS: insulin Lispro (HumaLOG) vial - multi-dose SQ SCH ×3 (08:15→19:03)
[2017-04-24 11:00] VITALS: BP 135/79
[2017-04-24] MEDS: losartan 50mg tablet PO SCH (14:04)
[2017-04-24] MEDS: bumetanide 1mg tablet PO SCH (14:05)
[2017-04-24 15:00] VITALS: BP 157/85
[2017-04-24 18:00] VITALS: BP 131/72
[2017-04-24] MEDS: NIFEdipine XL 30mg tablet PO SCH (20:27)
[2017-04-24 21:55] VITALS: BP 135/62
[2017-04-25 02:00] VITALS: BP 153/72
[2017-04-25 06:00] VITALS: BP 144/81
[2017-04-25 06:18] LABS: BASOPHILS % (AUTO) 0.2 % (0-1); EOSINOPHILS # (AUTO) 0.2 X10'3 (0-0.9); EOSINOPHILS % (AUTO) 1.6 % (0-6); HEMATOCRIT 38.1 % (42.0-52.0); HEMOGLOBIN 12.9 g/dl (14.0-17.9); LYMPHOCYTES # (AUTO) 0.8 X10'3 (1.1-4.8); LYMPHOCYTES % (AUTO) 8.5 % (21-51); MEAN CORPUSCULAR HEMOGLOBIN 32.6 PG (27.0-31.0); MEAN CORPUSCULAR HGB CONC 33.9 % (33.0-36.5); MEAN CORPUSCULAR VOLUME 96.1 FL (78-98); MEAN PLATELET VOLUME 6.7 FL (7.4-10.4); MONOCYTES # (AUTO) 0.9 X10'3 (0-0.9); MONOCYTES % (AUTO) 9.5 % (2-12); NEUTROPHILS # (AUTO) 7.9 X10'3 (1.8-7.7); NEUTROPHILS % (AUTO) 80.2 % (42-75); PLATELET COUNT 159 X10'3 (140-440); RED BLOOD COUNT 3.96 X10'6 (4.70-6.10); RED CELL DISTRIBUTION WIDTH 16.3 % (11.5-14.5); WHITE BLOOD COUNT 9.9 X10'3 (4.5-11.0)
[2017-04-25 06:25] LABS: PROTHROMBIN TIME 10.8 SECONDS (9.0-12.0)
[2017-04-25 07:12] LABS: ALANINE AMINOTRANSFERASE 33 U/L (12-78); ALBUMIN 3.5 G/DL (3.4-5.0); ALKALINE PHOSPHATASE 54 IU/L (46-116); ANION GAP 17 (8-16); ASPARTATE AMINO TRANSFERASE 19 U/L (10-37); BILIRUBIN,TOTAL 0.5 MG/DL (0.1-1.0); BLOOD UREA NITROGEN 54 MG/DL (7-18); BUN/CREATININE RATIO 7.8 (5.4-32.0); CALCIUM 8.1 MG/DL (8.5-10.1); CHLORIDE 98 MMOL/L (99-107); CREATININE 6.88 MG/DL (0.60-1.10); GLUCOSE 83 MG/DL (70-104); MAGNESIUM 2.3 MG/DL (1.5-2.4); SODIUM 140 MMOL/L (135-145); TOTAL CARBON DIOXIDE 25.5 MMOL/L (24-32); eGFR 8 ML/MIN
[2017-04-25] MEDS: methylPREDNISolone sod succ 125mg/2ml vial IV SCH (09:13)
[2017-04-25] MEDS: heparin, porcine 5000 units/ml vial SQ SCH ×2 (09:13→20:31)
[2017-04-25] MEDS: lactobacillus rhamnosus 10,000 MMU CELLS/CAPSULE PO SCH ×2 (09:14→17:41)
[2017-04-25] MEDS: cefepime 1GM/NS ADD-VANTAGE 100 ML IV SCH (09:14)
[2017-04-25] MEDS: losartan 50mg tablet PO SCH (09:15)
[2017-04-25] MEDS: bumetanide 1mg tablet PO SCH (09:15)
[2017-04-25] MEDS: insulin Lispro (HumaLOG) vial - multi-dose SQ SCH ×3 (09:45→20:37)
[2017-04-25] MEDS: albuterol 2.5 MG/3 ML nebule NEB PRN (10:26)
[2017-04-25 11:00] VITALS: BP 130/59
[2017-04-25 11:12] LABS: HBSAG SCREEN Negative (Negative)
[2017-04-25 15:00] VITALS: BP 150/78
[2017-04-25 18:00] VITALS: BP 151/82
[2017-04-25] MEDS: NIFEdipine XL 30mg tablet PO SCH (20:30)
[2017-04-25 22:00] VITALS: BP 142/53
[2017-04-25] MEDS: levoFLOXACIN-Levaquin 250mg/D5 50 ML IV SCH (23:39)
[2017-04-26 02:55] VITALS: BP 156/66
[2017-04-26 06:25] LABS: BASOPHILS % (AUTO) 0.1 % (0-1); EOSINOPHILS # (AUTO) 0.2 X10'3 (0-0.9); HEMOGLOBIN 12.3 g/dl (14.0-17.9); LYMPHOCYTES # (AUTO) 0.5 X10'3 (1.1-4.8); LYMPHOCYTES % (AUTO) 4.5 % (21-51); MEAN CORPUSCULAR HEMOGLOBIN 33.1 PG (27.0-31.0); MEAN CORPUSCULAR HGB CONC 34.1 % (33.0-36.5); MEAN CORPUSCULAR VOLUME 97.2 FL (78-98); MEAN PLATELET VOLUME 6.9 FL (7.4-10.4); MONOCYTES % (AUTO) 8.6 % (2-12); NEUTROPHILS # (AUTO) 9.8 X10'3 (1.8-7.7); NEUTROPHILS % (AUTO) 84.8 % (42-75); PLATELET COUNT 165 X10'3 (140-440); RED BLOOD COUNT 3.71 X10'6 (4.70-6.10); RED CELL DISTRIBUTION WIDTH 15.9 % (11.5-14.5); WHITE BLOOD COUNT 11.6 X10'3 (4.5-11.0)
[2017-04-26 06:49] LABS: INR 1.1 INR
[2017-04-26 07:00] VITALS: BP 168/98
[2017-04-26 07:06] LABS: ALANINE AMINOTRANSFERASE 27 U/L (12-78); ALBUMIN 3.1 G/DL (3.4-5.0); ALBUMIN/GLOBULIN RATIO 0.9 (1.1-1.5); ALKALINE PHOSPHATASE 53 IU/L (46-116); ANION GAP 16 (8-16); ASPARTATE AMINO TRANSFERASE 13 U/L (10-37); BILIRUBIN,TOTAL 0.4 MG/DL (0.1-1.0); BLOOD UREA NITROGEN 71 MG/DL (7-18); BUN/CREATININE RATIO 8.1 (5.4-32.0); CALCIUM 8.2 MG/DL (8.5-10.1); CHLORIDE 98 MMOL/L (99-107); CREATININE 8.81 MG/DL (0.60-1.10); GLUCOSE 149 MG/DL (70-104); MAGNESIUM 2.4 MG/DL (1.5-2.4); POTASSIUM 4.2 MMOL/L (3.5-5.1); SODIUM 140 MMOL/L (135-145); TOTAL CARBON DIOXIDE 25.9 MMOL/L (24-32); TOTAL PROTEIN 6.6 G/DL (6.4-8.2); eGFR 6 ML/MIN
[2017-04-26] MEDS: methylPREDNISolone sod succ 125mg/2ml vial IV SCH (07:49)
[2017-04-26] MEDS: losartan 50mg tablet PO SCH (07:50)
[2017-04-26] MEDS: heparin, porcine 5000 units/ml vial SQ SCH ×2 (07:50→20:29)
[2017-04-26] MEDS: bumetanide 1mg tablet PO SCH (07:50)
[2017-04-26] MEDS: lactobacillus rhamnosus 10,000 MMU CELLS/CAPSULE PO SCH ×2 (07:50→17:44)
[2017-04-26] MEDS: cefepime 1GM/NS ADD-VANTAGE 100 ML IV SCH (07:51)
[2017-04-26] MEDS: insulin Lispro (HumaLOG) vial - multi-dose SQ SCH ×3 (08:09→18:56)
[2017-04-26 11:00] VITALS: BP 128/55
[2017-04-26 15:00] VITALS: BP 138/69
[2017-04-26 19:00] VITALS: BP 169/75
[2017-04-26] MEDS: NIFEdipine XL 30mg tablet PO SCH (20:29)
[2017-04-26 23:00] VITALS: BP 116/55
[2017-04-27 03:00] VITALS: BP 155/66
[2017-04-27 07:00] VITALS: BP 163/74
[2017-04-27] MEDS: losartan 50mg tablet PO SCH (07:21)
[2017-04-27] MEDS: bumetanide 1mg tablet PO SCH (07:21)
[2017-04-27] MEDS: lactobacillus rhamnosus 10,000 MMU CELLS/CAPSULE PO SCH ×2 (07:21→17:28)
[2017-04-27] MEDS: methylPREDNISolone sod succ 125mg/2ml vial IV SCH (07:22)
[2017-04-27] MEDS: cefepime 1GM/NS ADD-VANTAGE 100 ML IV SCH (07:22)
[2017-04-27] MEDS: heparin, porcine 5000 units/ml vial SQ SCH ×2 (07:22→21:10)
[2017-04-27] MEDS ORDERED: heparin 1,000unit/ml 10ml vial 10 ML IV ONE (08:00)
[2017-04-27] MEDS ORDERED: epoetin 20,000 units/ml inj IV ONE (08:00)
[2017-04-27] MEDS ORDERED: heparin 1,000 units/ml 10ml inj IV ONE (08:00)
[2017-04-27] MEDS ORDERED: albumin (human) 25% 100ml IV 100 ML IV PRN (08:00)
[2017-04-27] MEDS ORDERED: LIDOcaine 1% (10mg/ml) 2ml vial SQ ONE (08:00)
[2017-04-27] MEDS: insulin Lispro (HumaLOG) vial - multi-dose SQ SCH ×3 (09:25→18:56)
[2017-04-27 11:00] VITALS: BP 102/53
[2017-04-27] MEDS ORDERED: acetaminophen 325mg tablet PO PRN (11:35)
[2017-04-27 15:00] VITALS: BP 136/69
[2017-04-27 19:00] VITALS: BP 138/63
[2017-04-27] MEDS ORDERED: insulin glargine (Lantus) pen - multi-dose SQ SCH (21:00)
[2017-04-27] MEDS: NIFEdipine XL 30mg tablet PO SCH (21:10)
[2017-04-27 23:00] VITALS: BP 145/52
[2017-04-28] MEDS: levoFLOXACIN-Levaquin 250mg/D5 50 ML IV SCH (00:25)
[2017-04-28 05:30] VITALS: BP 142/67
[2017-04-28] MEDS: losartan 50mg tablet PO SCH (08:13)
[2017-04-28] MEDS: bumetanide 1mg tablet PO SCH (08:13)
[2017-04-28] MEDS: lactobacillus rhamnosus 10,000 MMU CELLS/CAPSULE PO SCH (08:14)
[2017-04-28] MEDS: heparin, porcine 5000 units/ml vial SQ SCH (08:15)
[2017-04-28] MEDS: cefepime 1GM/NS ADD-VANTAGE 100 ML IV SCH (08:16)
[2017-04-28] MEDS: methylPREDNISolone sod succ 125mg/2ml vial IV SCH (08:17)
[2017-04-28 11:00] VITALS: BP 143/66
== END 2017-04-28 13:15 | disposition home or self-care (01) | DRG 291 ==
LOC: ER 22:51 → ED HOLD 04-20 01:56 → PCU 3S 04-20 11:20
PROVIDERS: ADMIT Internal Medicine Critical Care Medicine
PROC: 5A1D70Z Performance of Urinary Filtration, Intermittent, Less than 6 Hours Per Day (ICD-10-PCS; principal; 2017-04-20)
PROC: 5A1D70Z Performance of Urinary Filtration, Intermittent, Less than 6 Hours Per Day (ICD-10-PCS; 2017-04-22)
PROC: 5A1D70Z Performance of Urinary Filtration, Intermittent, Less than 6 Hours Per Day (ICD-10-PCS; 2017-04-24)
PROC: 5A1D70Z Performance of Urinary Filtration, Intermittent, Less than 6 Hours Per Day (ICD-10-PCS; 2017-04-27)
DX: I13.2 Hypertensive heart and chronic kidney disease with heart failure and with stage 5 chronic kidney disease, or end stage renal disease (principal); J18.9 Pneumonia, unspecified organism; J96.01 Acute respiratory failure with hypoxia; E11.22 Type 2 diabetes mellitus with diabetic chronic kidney disease; E87.5 Hyperkalemia; R65.10 Systemic inflammatory response syndrome (SIRS) of non-infectious origin without acute organ dysfunction; E11.649 Type 2 diabetes mellitus with hypoglycemia without coma; N18.6 End stage renal disease; J81.0 Acute pulmonary edema; I50.41 Acute combined systolic (congestive) and diastolic (congestive) heart failure; J44.1 Chronic obstructive pulmonary disease with (acute) exacerbation; J44.0 Chronic obstructive pulmonary disease with (acute) lower respiratory infection; Z99.81 Dependence on supplemental oxygen; Z99.2 Dependence on renal dialysis; Z79.84 Long term (current) use of oral hypoglycemic drugs; Z79.899 Other long term (current) drug therapy; Z87.891 Personal history of nicotine dependence
CPT/HCPCS: 36415; 71045; 71250; 80053; 80061; 81001; 81003; 82948; 83036; 83605; 83735; 83880; 84145; 84484; 85025; 85610; 85730; 87040; 87070; 87077; 87186; 87324; 87340; 87449; 87502; 87503; 93005; 93306; 94640; 94667; 94668; 94760; 96374; 96375; 97110; 97116; 97162; 99285; A4353; A6257; A6402; G0257; J0692; J0885; J1644; J1815; J1956; J2930; J3490; J7030

== ENCOUNTER 2017-09-20 12:17 | Emergency (ER) | payer MEDICARE, BC ==
[~2017-09-20] VITALS: Ht 180.3 cm; Wt 131.0 kg
[2017-09-20] MEDS ORDERED: ondansetron 4mg rapidly disintigrating tab PO ONE (13:15)
[2017-09-20] MEDS ORDERED: HYDROcodone/acetaminophen 5mg/325mg tablet PO ONE (13:15)
[2017-09-20] MEDS ORDERED: morphine 4 MG/ML inj SYRINge IM ONE (14:55)
[2017-09-20 16:30] VITALS: BP 146/73
[2017-09-20] MEDS ORDERED: HYDR-3965 PO (16:42)
[2017-09-20] MEDS ORDERED: DICL100G15 TOP (16:42)
== END 2017-09-20 17:01 | disposition home or self-care (01) ==
LOC: ER 12:17
DX: M25.461 Effusion, right knee (principal); I25.10 Atherosclerotic heart disease of native coronary artery without angina pectoris; J44.9 Chronic obstructive pulmonary disease, unspecified; K21.9 Gastro-esophageal reflux disease without esophagitis; N18.9 Chronic kidney disease, unspecified; E11.22 Type 2 diabetes mellitus with diabetic chronic kidney disease; I13.0 Hypertensive heart and chronic kidney disease with heart failure and stage 1 through stage 4 chronic kidney disease, or unspecified chronic kidney disease; I50.9 Heart failure, unspecified; Z99.2 Dependence on renal dialysis; Z90.89 Acquired absence of other organs; Z98.890 Other specified postprocedural states; Z87.891 Personal history of nicotine dependence; Z79.899 Other long term (current) drug therapy
CPT/HCPCS: 73564; 93971; 96372; 99284; A6449; J2270

== ENCOUNTER 2017-12-07 08:41 | Emergency (ER) | payer MEDICARE, BC ==
[~2017-12-07] VITALS: Ht 180.3 cm; Wt 126.0 kg
[~2017-12-07 08:41] MED LIST changes: +DICL100G15 TOP; +LOSA100T15 PO; -LOSA100T28 PO
[2017-12-07 08:47] VITALS: BP 108/78
[2017-12-07] MEDS ORDERED: CefTRIAXone 1000mg IM Kit (w/lidocaine diluent) IM ONE (09:00)
[2017-12-07] MEDS ORDERED: ondansetron 4mg rapidly disintigrating tab PO ONE (09:00)
[2017-12-07] MEDS ORDERED: LIDOcaine 1.5% w/epinephrine 1:200,000 5ml ampul IJ ONE (09:00)
[2017-12-07] MEDS ORDERED: DOXYCYCLINE 100MG CAPSULE PO STA (09:00)
[2017-12-07] MEDS ORDERED: bacitracin 15gm ointment TP ONE (09:00)
[2017-12-07] MEDS ORDERED: TETanus/Pertussis (Acell)/Diphther VAC/PF (Tdap-Adult) 0.5ml syringe IM ONE (09:00)
[2017-12-07] MEDS ORDERED: DOXY100C43 PO (09:27)
[2017-12-07] MEDS ORDERED: CEPH250T PO (09:27)
== END 2017-12-07 09:43 | disposition home or self-care (01) ==
LOC: ER 08:41
DX: L03.211 Cellulitis of face (principal); L02.01 Cutaneous abscess of face; I13.0 Hypertensive heart and chronic kidney disease with heart failure and stage 1 through stage 4 chronic kidney disease, or unspecified chronic kidney disease; E11.22 Type 2 diabetes mellitus with diabetic chronic kidney disease; N18.9 Chronic kidney disease, unspecified; I50.9 Heart failure, unspecified; K21.9 Gastro-esophageal reflux disease without esophagitis; J44.9 Chronic obstructive pulmonary disease, unspecified; Z90.89 Acquired absence of other organs; Z86.14 Personal history of Methicillin resistant Staphylococcus aureus infection; Z98.890 Other specified postprocedural states; Z79.899 Other long term (current) drug therapy; Z99.2 Dependence on renal dialysis
CPT/HCPCS: 10060; 90471; 90715; 96372; 99284; J0696

== ENCOUNTER 2018-04-27 13:33 | Inpatient (IN) | payer MEDICARE, BC | END 2018-05-07 21:45 | LOC: PCU 3S 05-04 15:49 → ER 13:33 → ICU 2S 04-29 20:40 → ED HOLD 21:40 → PCU 3S 22:33 | PROC: 0V9500Z Drainage of Scrotum with Drainage Device, Open Approach (ICD-10-PCS; principal; 2018-04-29 18:05) | PROC: 0JB70ZZ Excision of Back Subcutaneous Tissue and Fascia, Open Approach (ICD-10-PCS; 2018-04-29 18:05) | PROC: 0JBB0ZZ Excision of Perineum Subcutaneous Tissue and Fascia, Open Approach (ICD-10-PCS; 2018-04-29 18:05) | PROC: 0HB6XZZ Excision of Back Skin, External Approach (ICD-10-PCS; 2018-04-29 18:05) | PROC: 0HB9XZZ Excision of Perineum Skin, External Approach (ICD-10-PCS; 2018-04-29 18:05) | DX: A41.9 Sepsis, unspecified organism (principal); N18.6 End stage renal disease; M72.6 Necrotizing fasciitis; I13.2 Hypertensive heart and chronic kidney disease with heart failure and with stage 5 chronic kidney disease, or end stage renal disease; I50.9 Heart failure, unspecified; N49.2 Inflammatory disorders of scrotum ==

== ENCOUNTER 2018-11-25 16:52 | Inpatient (IN) | payer MEDICARE, BC ==
[~2018-11-25] VITALS: Ht 182.9 cm; Wt 114.6 kg
[~2018-11-25 16:52] MED LIST changes: -BUME2TAB3 PO; +BUME2TAB7 PO; -DICL100G15 TOP; +DOCU-148 PO; +FLUT1BLS4 IH; -LOSA100T15 PO; +LOSA100T57 PO; -NIFE30TA95 PO; +OMEP40CA13 PO; -OMEP40CA37 PO; +VERA120T2 PO
[2018-11-25 18:17] LABS: BASOPHILS # (AUTO) 0.1 X10'3 (0-0.2); EOSINOPHILS # (AUTO) 0.3 X10'3 (0-0.9); EOSINOPHILS % (AUTO) 4.4 % (0-6); HEMATOCRIT 27.1 % (42.0-52.0); LYMPHOCYTES # (AUTO) 0.7 X10'3 (1.1-4.8); LYMPHOCYTES % (AUTO) 11.1 % (21-51); MEAN CORPUSCULAR HEMOGLOBIN 34.8 PG (27.0-31.0); MEAN CORPUSCULAR HGB CONC 33.1 g/dL (33.0-36.5); MEAN PLATELET VOLUME 7.4 FL (7.4-10.4); MONOCYTES # (AUTO) 0.5 X10'3 (0-0.9); MONOCYTES % (AUTO) 8.5 % (2-12); NEUTROPHILS # (AUTO) 4.4 X10'3 (1.8-7.7); PLATELET COUNT 250 X10'3 (140-440); RED BLOOD COUNT 2.58 X10'6 (4.70-6.10); RED CELL DISTRIBUTION WIDTH 18.3 % (11.5-14.5); WHITE BLOOD COUNT 5.9 X10'3 (4.5-11.0)
[2018-11-25 18:31] LABS: ALANINE AMINOTRANSFERASE 19 U/L (12-78); ALBUMIN 3.4 G/DL (3.4-5.0); ALBUMIN/GLOBULIN RATIO 0.9 (1.1-1.5); ALKALINE PHOSPHATASE 84 IU/L (46-116); ANION GAP 11 (8-16); ASPARTATE AMINO TRANSFERASE 12 U/L (10-37); BILIRUBIN,TOTAL 0.4 MG/DL (0.1-1.0); BLOOD UREA NITROGEN 55 MG/DL (7-18); CALCIUM 9.3 MG/DL (8.5-10.1); CHLORIDE 104 MMOL/L (99-107); GLUCOSE 170 MG/DL (70-104); POTASSIUM 5.2 MMOL/L (3.5-5.1); SODIUM 147 MMOL/L (135-145); TOTAL CARBON DIOXIDE 31.9 MMOL/L (24-32)
[2018-11-25 18:42] LABS: PARTIAL THROMBOPLASTIN TIME 28 SECONDS (22-32)
[2018-11-25 19:20] LABS: BUN/CREATININE RATIO 5.5 (5.4-32.0); CREATININE 9.91 MG/DL (0.60-1.10); eGFR 5 ML/MIN
[2018-11-25] MEDS ORDERED: hydrALAZINE 20mg/ml inj. IV ONE (21:15)
[2018-11-25] MEDS ORDERED: acetaminophen 325mg tablet PO PRN ×2 (21:20)
[2018-11-25] MEDS ORDERED: ondansetron/PF 4mg/2ml inj IV PRN (21:20)
--- NOTE | 2018-11-25 22:10 | NUR ---
Patient in room PCU 3024. I have received report from Jodi CAIN and had the opportunity to ask questions and assume patient care.
[2018-11-25 23:00] VITALS: BP 180/91
--- NOTE | 2018-11-25 23:30 | NUR ---
pt BP was 181/91, he said that his BP runs abi even up to the 200. pt had no headache, pain, and pt received hydralazine down to ER prior coming to the unit
[2018-11-25] MEDS ORDERED: albuterol 2.5 MG/3 ML nebule NEB PRN (23:40)
[2018-11-26] VITALS (7 sets, daily range): BP systolic 138–187; BP diastolic 70–107
--- NOTE | 2018-11-26 06:30 | NUR ---
Problems reprioritized. Patient report given, questions answered & plan of care reviewed with Yasir CAIN.
[2018-11-26 06:32] LABS: ALANINE AMINOTRANSFERASE 18 U/L (12-78); ALBUMIN 3.2 G/DL (3.4-5.0); ALBUMIN/GLOBULIN RATIO 0.9 (1.1-1.5); ALKALINE PHOSPHATASE 66 IU/L (46-116); ANION GAP 15 (8-16); ASPARTATE AMINO TRANSFERASE 19 U/L (10-37); BILIRUBIN,TOTAL 0.3 MG/DL (0.1-1.0); BLOOD UREA NITROGEN 59 MG/DL (7-18); BUN/CREATININE RATIO 5.6 (5.4-32.0); CALCIUM 9.8 MG/DL (8.5-10.1); CHLORIDE 104 MMOL/L (99-107); CREATININE 10.49 MG/DL (0.60-1.10); GLUCOSE 108 MG/DL (70-104); SODIUM 145 MMOL/L (135-145); TOTAL CARBON DIOXIDE 26.3 MMOL/L (24-32); TOTAL PROTEIN 6.8 G/DL (6.4-8.2); eGFR 5 ML/MIN
[2018-11-26 06:36] LABS: MAGNESIUM 2.7 MG/DL (1.5-2.4); PHOSPHORUS 7.3 MG/DL (2.3-4.5)
[2018-11-26 06:39] LABS: POTASSIUM 5.3 MMOL/L (3.5-5.1)
--- NOTE | 2018-11-26 07:04 | NUR ---
Patient in room PCU 3024. I have received report from ANT Gotti and had the opportunity to ask questions and assume patient care.
[2018-11-26 07:37] LABS: BASOPHILS # (AUTO) 0.1 X10'3 (0-0.2); BASOPHILS % (AUTO) 1.4 % (0-1); EOSINOPHILS # (AUTO) 0.3 X10'3 (0-0.9); EOSINOPHILS % (AUTO) 5.2 % (0-6); HEMATOCRIT 27.3 % (42.0-52.0); HEMOGLOBIN 9.1 g/dl (14.0-17.9); LYMPHOCYTES # (AUTO) 0.7 X10'3 (1.1-4.8); MEAN CORPUSCULAR HEMOGLOBIN 34.6 PG (27.0-31.0); MEAN CORPUSCULAR HGB CONC 33.4 g/dL (33.0-36.5); MEAN CORPUSCULAR VOLUME 103.6 FL (78-98); MEAN PLATELET VOLUME 6.8 FL (7.4-10.4); MONOCYTES # (AUTO) 0.5 X10'3 (0-0.9); MONOCYTES % (AUTO) 8.7 % (2-12); NEUTROPHILS # (AUTO) 4.4 X10'3 (1.8-7.7); NEUTROPHILS % (AUTO) 72.7 % (42-75); PLATELET COUNT 260 X10'3 (140-440); RED BLOOD COUNT 2.64 X10'6 (4.70-6.10); RED CELL DISTRIBUTION WIDTH 18.2 % (11.5-14.5)
[2018-11-26] MEDS: losartan 50mg tablet PO SCH (07:42)
[2018-11-26] MEDS: pantoprazole 40mg Tablet.DR PO SCH (07:42)
[2018-11-26] MEDS: verapamil SR 120mg (sust. release) tab PO SCH (07:42)
[2018-11-26] MEDS: heparin, porcine 5000 units/ml vial SQ SCH ×2 (07:44→20:00)
[2018-11-26] MEDS: bumetanide 1mg tablet PO SCH ×3 (07:45→21:00)
[2018-11-26] MEDS ORDERED: heparin 1,000unit/ml 10ml vial 10 ML IV ONE (09:27)
[2018-11-26] MEDS ORDERED: normal saline 1000ml 250 ML IV PRN (09:27)
[2018-11-26] MEDS ORDERED: LIDOcaine 1% (10mg/ml) 2ml vial SQ ONE (09:30)
[2018-11-26] MEDS ORDERED: epoetin 20,000 units/ml inj IV ONE (09:30)
[2018-11-26] MEDS ORDERED: dextrose 50%-water 50ml dispensing syringe IV PRN ×2 (09:50)
[2018-11-26] MEDS ORDERED: insulin Lispro (HumaLOG) vial - multi-dose SQ SCH (09:50)
[2018-11-26] MEDS ORDERED: MESSAGE TO PHARMACY PO ONE (09:50)
[2018-11-26] MEDS ORDERED: glucagon, human recombinant 1mg kit SUBCUT PRN (09:50)
[2018-11-26] MEDS ORDERED: dextrose ORAL solution 15 GM/59 ML bottle PO PRN ×2 (09:50)
--- NOTE | 2018-11-26 12:46 | NUR ---
Notified MD of pt elevated BP of 174/89 and pt refusal of Bumex. Pending dialysis, should start in 2 hours. Pt denies complaint. MD okay with waiting for dialysis.
--- NOTE | 2018-11-26 16:48 | NUR ---
I have reviewed and agree with all medications administered and interventions performed by [facility] Student Arden Elise Addendum: 11/26/18 at 1649 by Celia Strong RT Amended: Links added.
--- NOTE | 2018-11-26 18:27 | NUR ---
Problems reprioritized. Patient report given, questions answered & plan of care reviewed with Navneet RN.
--- NOTE | 2018-11-26 18:31 | NUR ---
Patient in room PCU 3024. I have received report from Emiliano CAIN and had the opportunity to ask questions and assume patient care.
[2018-11-26] MEDS ORDERED: insulin glargine (Lantus) pen - multi-dose SQ SCH (21:00)
--- NOTE | 2018-11-26 21:00 | NUR ---
Pt is noncompliant with current treatment plan, refused accucheck at 2100, refused Bumex and Heparin. RN provided teachings on benefits of bumex and heparin, pt refused again
[2018-11-27 02:00] VITALS: BP_SYST 156; BP_SYST 196; BP_DIAS 79
[2018-11-27 05:08] LABS: BASOPHILS # (AUTO) 0.1 X10'3 (0-0.2); BASOPHILS % (AUTO) 1.2 % (0-1); EOSINOPHILS # (AUTO) 0.4 X10'3 (0-0.9); HEMATOCRIT 28.5 % (42.0-52.0); HEMOGLOBIN 9.5 g/dl (14.0-17.9); LYMPHOCYTES # (AUTO) 0.6 X10'3 (1.1-4.8); LYMPHOCYTES % (AUTO) 9.5 % (21-51); MEAN CORPUSCULAR HEMOGLOBIN 35.4 PG (27.0-31.0); MEAN CORPUSCULAR HGB CONC 33.5 g/dL (33.0-36.5); MEAN CORPUSCULAR VOLUME 105.6 FL (78-98); MEAN PLATELET VOLUME 7.2 FL (7.4-10.4); MONOCYTES # (AUTO) 0.6 X10'3 (0-0.9); MONOCYTES % (AUTO) 9.7 % (2-12); NEUTROPHILS # (AUTO) 4.3 X10'3 (1.8-7.7); NEUTROPHILS % (AUTO) 73.6 % (42-75); PLATELET COUNT 261 X10'3 (140-440); RED CELL DISTRIBUTION WIDTH 18.8 % (11.5-14.5); WHITE BLOOD COUNT 5.9 X10'3 (4.5-11.0)
[2018-11-27 05:10] LABS: ALANINE AMINOTRANSFERASE 19 U/L (12-78); ALBUMIN 3.3 G/DL (3.4-5.0); ALBUMIN/GLOBULIN RATIO 0.9 (1.1-1.5); ALKALINE PHOSPHATASE 65 IU/L (46-116); ANION GAP 10 (8-16); ASPARTATE AMINO TRANSFERASE 9 U/L (10-37); BILIRUBIN,TOTAL 0.3 MG/DL (0.1-1.0); BLOOD UREA NITROGEN 28 MG/DL (7-18); CALCIUM 9.1 MG/DL (8.5-10.1); CHLORIDE 102 MMOL/L (99-107); CREATININE 6.95 MG/DL (0.60-1.10); GLUCOSE 157 MG/DL (70-104); MAGNESIUM 2.1 MG/DL (1.5-2.4); PHOSPHORUS 5.7 MG/DL (2.3-4.5); POTASSIUM 4.6 MMOL/L (3.5-5.1); SODIUM 142 MMOL/L (135-145); TOTAL CARBON DIOXIDE 30.4 MMOL/L (24-32); TOTAL PROTEIN 6.9 G/DL (6.4-8.2); eGFR 8 ML/MIN
--- NOTE | 2018-11-27 05:55 | NUR ---
I have reviewed and agree with Leidy Xiao's RN charting.
[2018-11-27 06:00] VITALS: BP 130/85
--- NOTE | 2018-11-27 06:00 | NUR ---
Problems reprioritized. Patient report given, questions answered & plan of care reviewed with ANT Cooley.
--- NOTE | 2018-11-27 06:00 | NUR ---
Problems reprioritized. Patient report given, questions answered & plan of care reviewed with Gabbi Lindsay RN.
--- NOTE | 2018-11-27 06:03 | NUR ---
Problems reprioritized. Patient report given, questions answered & plan of care reviewed with Emiliano CAIN.
--- NOTE | 2018-11-27 06:09 | NUR ---
Patient in room PCU 3024. I have received report from ANT Toth and had the opportunity to ask questions and assume patient care.
[2018-11-27] MEDS: heparin, porcine 5000 units/ml vial SQ SCH (07:01)
[2018-11-27] MEDS: bumetanide 1mg tablet PO SCH ×2 (07:01→13:00)
[2018-11-27] MEDS: verapamil SR 120mg (sust. release) tab PO SCH (07:08)
[2018-11-27] MEDS: losartan 50mg tablet PO SCH (07:08)
[2018-11-27] MEDS: pantoprazole 40mg Tablet.DR PO SCH (07:08)
--- NOTE | 2018-11-27 07:11 | NUR ---
Pt refusing AM [facility] assessment
[2018-11-27 07:42] LABS: TOTAL CELLS COUNTED 100
[2018-11-27 07:43] LABS: ANISOCYTOSIS 2+; PLATELET ESTIMATE NORMAL; POIKILOCYTOSIS FEW; POLYCHROMASIA FEW
[2018-11-27 11:00] VITALS: BP 183/73
--- NOTE | 2018-11-27 11:54 | NUR ---
Notified Flores Garcia of pt refusal of accuchecks. Ok to not check blood sugar, pt to be discharged today.
--- NOTE | 2018-11-27 11:54 | NUR ---
Notified Flores Garcia of bp 183/73, she will look into it.
--- NOTE | 2018-11-27 12:39 | NUR ---
DM consult: Patient's A1c is 7.0. Pt previously admitted seen by RYAN in April of this year with A1c 8.1 provided with written and verbal DM education with referral to outpatient DM class and RD contact information. Pt pending discharge. Will continue to follow and assess need for further DM education upon full assessment if pt does not discharge today. Addendum: 11/27/18 at [address] Amended: Links added.
--- NOTE | 2018-11-27 17:56 | NUR ---
Discharged, IV and tele taken off, given DM survival skills and educated on ESRD. Stable for DC per MD.
== END 2018-11-27 13:30 | disposition home or self-care (01) | DRG 189 ==
LOC: ER 16:53 → PCU 3S 22:28
PROVIDERS: ADMIT Internal Medicine Critical Care Medicine; ATTEND Internal Medicine Critical Care Medicine
PROC: 5A1D70Z Performance of Urinary Filtration, Intermittent, Less than 6 Hours Per Day (ICD-10-PCS; principal; 2018-11-26)
DX: J96.01 Acute respiratory failure with hypoxia (principal); N18.6 End stage renal disease; I13.2 Hypertensive heart and chronic kidney disease with heart failure and with stage 5 chronic kidney disease, or end stage renal disease; J44.9 Chronic obstructive pulmonary disease, unspecified; I50.9 Heart failure, unspecified; K21.9 Gastro-esophageal reflux disease without esophagitis; E11.22 Type 2 diabetes mellitus with diabetic chronic kidney disease; Z60.2 Problems related to living alone; E87.5 Hyperkalemia; Z99.2 Dependence on renal dialysis; Z86.14 Personal history of Methicillin resistant Staphylococcus aureus infection; Z91.15 Patient's noncompliance with renal dialysis; E87.79 Other fluid overload
CPT/HCPCS: 36415; 71045; 80053; 82948; 83036; 83605; 83735; 84100; 84484; 85025; 85610; 85730; 87040; 87081; 93005; 94760; 96374; 99285; G0257; G0378; J0360; J1644; J1815; J2001; Q4081

== ENCOUNTER 2019-11-12 09:15 | Inpatient (IN) | payer MEDICARE, BC ==
[~2019-11-12] VITALS: Ht 180.3 cm; Wt 114.0 kg
[2019-11-12] MEDS ORDERED: nitroGLYCERIN-Tridil 50MG/D5W 250 ML IV PRN (09:49)
[2019-11-12] MEDS ORDERED: methylPREDNISolone sod succ 125mg/2ml vial IV ONE (09:50)
[2019-11-12] MEDS ORDERED: albuterol 2.5 MG/3 ML nebule NEB ONE (09:50)
[2019-11-12] MEDS ORDERED: ipratropium/albuterol 3ml nebule NEB ONE (09:50)
[2019-11-12] MEDS ORDERED: hydrALAZINE 20mg/ml inj. IV ONE (09:50)
[2019-11-12 09:57] LABS: BASOPHILS # (AUTO) 0.1 X10'3 (0-0.2); BASOPHILS % (AUTO) 1.4 % (0-1); EOSINOPHILS # (AUTO) 1.4 X10'3 (0-0.9); EOSINOPHILS % (AUTO) 17.8 % (0-6); HEMATOCRIT 36.1 % (42.0-52.0); HEMOGLOBIN 11.8 g/dl (14.0-17.9); LYMPHOCYTES # (AUTO) 0.7 X10'3 (1.1-4.8); LYMPHOCYTES % (AUTO) 9.2 % (21-51); MEAN CORPUSCULAR HEMOGLOBIN 32.8 PG (27.0-31.0); MEAN CORPUSCULAR HGB CONC 32.7 g/dL (33.0-36.5); MEAN CORPUSCULAR VOLUME 100.3 FL (78-98); MEAN PLATELET VOLUME 7.3 FL (7.4-10.4); MONOCYTES # (AUTO) 0.5 X10'3 (0-0.9); MONOCYTES % (AUTO) 6.9 % (2-12); NEUTROPHILS % (AUTO) 64.7 % (42-75); PLATELET COUNT 246 X10'3 (140-440); RED CELL DISTRIBUTION WIDTH 18.5 % (11.5-14.5); WHITE BLOOD COUNT 7.8 X10'3 (4.5-11.0)
[2019-11-12 10:06] LABS: ALANINE AMINOTRANSFERASE 20 U/L (12-78); ALBUMIN 3.6 G/DL (3.4-5.0); ALKALINE PHOSPHATASE 83 IU/L (46-116); ANION GAP 6 (8-16); ASPARTATE AMINO TRANSFERASE 12 U/L (10-37); BILIRUBIN,TOTAL 0.4 MG/DL (0.1-1.0); BLOOD UREA NITROGEN 46 MG/DL (7-18); BUN/CREATININE RATIO 4.1 (5.4-32.0); CALCIUM 9.8 MG/DL (8.5-10.1); CHLORIDE 101 MMOL/L (99-107); CREATININE 11.24 MG/DL (0.60-1.10); GLUCOSE 115 MG/DL (70-104); POTASSIUM 5.8 MMOL/L (3.5-5.1); SODIUM 141 MMOL/L (135-145); TOTAL CARBON DIOXIDE 33.7 MMOL/L (24-32); TOTAL PROTEIN 7.2 G/DL (6.4-8.2); eGFR 5 ML/MIN
--- NOTE | 2019-11-12 10:12 | NUR ---
patient started on nitro drip 5mcg/min, bp 221/68,per ED MD systolic bp goal of 160's-180's.
[2019-11-12 10:14] LABS: MAGNESIUM 2.7 MG/DL (1.5-2.4)
--- NOTE | 2019-11-12 10:14 | NUR ---
Sitting at the edge of the bed,encouraged to elevate bilateral extremities but refused due to sob.
--- NOTE | 2019-11-12 10:14 | NUR ---
Rt at bedside for breathing tx.
--- NOTE | 2019-11-12 10:35 | NUR ---
nitro drip stopped bp 144/69 hr 108.
--- NOTE | 2019-11-12 10:35 | NUR ---
aware nitro drip stopped.
[2019-11-12] MEDS ORDERED: sodium bicarbonate (8.4%) inj. 100 MEQ in dextrose 5%-water 1,000 ML IV SCH (10:40)
--- NOTE | 2019-11-12 10:41 | NUR ---
med rec faxed to pharmacy.
[2019-11-12] MEDS ORDERED: diphenhydrAMINE 50 mg/ml inj IV PRN (11:10)
[2019-11-12] MEDS ORDERED: ondansetron/PF 4mg/2ml inj IV PRN (11:10)
[2019-11-12] MEDS ORDERED: acetaminophen 325mg tablet PO PRN (11:10)
[2019-11-12] MEDS ORDERED: nitroGLYCERIN 1gm ointment UD TP ONE (11:10)
--- NOTE | 2019-11-12 11:38 | NUR ---
Radha PROJECT MANAGEMENT PROFESSOR at bedside.
--- NOTE | 2019-11-12 11:38 | NUR ---
re started on nitro drip 5mcg/min.
[2019-11-12] MEDS ORDERED: LIDOcaine 1% (10mg/ml) 2ml vial SQ ONE (11:40)
[2019-11-12] MEDS ORDERED: normal saline 1000ml 250 ML IV PRN (11:40)
[2019-11-12] MEDS ORDERED: heparin 1,000 units/ml 10ml inj IV ONE (11:40)
[2019-11-12] MEDS ORDERED: TIOT4MIS5 IH (12:08)
--- NOTE | 2019-11-12 12:08 | NUR ---
per lennox stop nitro drip and change to nitro ointment patch.
[2019-11-12] MEDS ORDERED: PHO667C PO (12:09)
[2019-11-12] MEDS ORDERED: DOCU250C17 PO (12:10)
--- NOTE | 2019-11-12 12:11 | NUR ---
nifedipine not in the omni,called pharmacy,tech said she'll bring it to ed.
[2019-11-12 12:15] LABS: ABG BASE EXCESS 1.9 mmol/L (-2.0-2.0); ABG HCO3 27.7 mmol/L (22.0-26.0); ABG OXYGEN SATURATION 94.6 % (94-97); ABG PCO2 (T) 48.2 mmHg (35.0-48.0); ABG PO2 (T) 79.1 mmHg (75.0-100.0); ALLEN'S TEST POSITIVE; FCOHb 0.9 % (0.0-3.9); FLOW 4 L/min; FMetHb 0.1 % (0.0-1.5); FO2Hb 93.7 % (94-97); TOTAL HEMOGLOBIN 12.3 G/dl (14.0-18.0)
--- NOTE | 2019-11-12 13:41 | NUR ---
Patient in room ED 14. I have received report from ANT Ruiz and had the opportunity to ask questions and assume patient care.
[2019-11-12] MEDS ORDERED: MULT-1142 PO (13:48)
[2019-11-12] MEDS ORDERED: NEBI2.5T3 PO (13:49)
[2019-11-12] MEDS ORDERED: FLUT50DI IH (13:51)
--- NOTE | 2019-11-12 13:52 | NUR ---
Pt stable for transfer to unit by ANT Gomez. Oriented pt to call light and room. Tele monitor placed. Performed a 2 RN skin check and physical assessment. VS: 160/[id number]%
[2019-11-12 14:23] VITALS: BP 160/77
[2019-11-12] MEDS ORDERED: atropine 1 MG/1 ML vial IV PRN (14:45)
[2019-11-12 15:00] VITALS: BP 180/73
[2019-11-12] MEDS ORDERED: ipratropium/albuterol 3ml nebule NEB SCH (15:00)
[2019-11-12] MEDS: DOBUTamine-DoBUTrex 500mg/D5W 250 ML IV SCH (15:18)
[2019-11-12] MEDS ORDERED: MESSAGE TO PHARMACY PO ONE (15:40)
[2019-11-12] MEDS ORDERED: glucagon, human recombinant 1mg kit SUBCUT PRN (15:40)
[2019-11-12] MEDS ORDERED: dextrose 50%-water 50ml dispensing syringe IV PRN ×2 (15:40)
[2019-11-12] MEDS ORDERED: dextrose ORAL solution 15 GM/59 ML bottle PO PRN ×2 (15:40)
[2019-11-12] MEDS ORDERED: LORazepam 2 mg/ml vial IV ONE (15:55)
[2019-11-12] MEDS ORDERED: albuterol 2.5 MG/3 ML nebule NEB PRN (15:55)
[2019-11-12] MEDS ORDERED: BUME2TAB7 PO (16:14)
[2019-11-12 17:06] LABS: HEMOGLOBIN A1C 6.8 % (4.5-6.2)
[2019-11-12 18:00] VITALS: BP 98/73
--- NOTE | 2019-11-12 18:07 | NUR ---
Problems reprioritized. Patient report given, questions answered & plan of care reviewed with ANT Yang.
[2019-11-12] MEDS ORDERED: gelatin sponge, absorbable (Gelfoam 100) sponge TP ONE (18:10)
--- NOTE | 2019-11-12 18:10 | NUR ---
Patient in room PCU 3014. I have received report from Lexii CAIN and had the opportunity to ask questions and assume patient care. Patient was receiving dialysis at the time of report and no acute distress was noted.
--- NOTE | 2019-11-12 18:41 | NUR ---
New orders from Radha. Place pt NPO until dialysis is completed, fluid restriction to 1L/day, CC/Renal diet, hyper/hypoglycemic protocol, dobutamine at 5mcg/kg/min, and atropine 1mg IV.
[2019-11-12] MEDS: insulin Lispro (HumaLOG) vial - multi-dose SQ SCH (19:08)
[2019-11-12] MEDS ORDERED: docusate sod 100mg capsule PO SCH (20:00)
[2019-11-12] MEDS: budesonide 0.5mg/2ml UD nebule IH SCH (20:24)
[2019-11-12] MEDS: ipratropium 0.5 MG/2.5ML nebule IH SCH (20:24)
[2019-11-12] MEDS: heparin, porcine 5000 units/ml vial SQ SCH (21:27)
[2019-11-12] MEDS: docusate sod 250mg capsule PO SCH (21:27)
[2019-11-12] MEDS: bumetanide 1mg tablet PO SCH (21:28)
[2019-11-12] MEDS: metoprolol tartrate 12.5mg (1/2 tablet) PO SCH (21:29)
[2019-11-12] MEDS: insulin glargine (Lantus) pen - multi-dose SQ SCH (21:43)
[2019-11-12 22:00] VITALS: BP 110/71
[2019-11-13] VITALS (16 sets, daily range): BP systolic 104–165; BP diastolic 47–101
[2019-11-13] MEDS: calcium acetate 667mg (PhosLO) capsule PO SCH ×3 (01:06→20:26)
[2019-11-13] MEDS: methylPREDNISolone sod succ 125mg/2ml vial IV SCH ×4 (01:06→20:25)
[2019-11-13] MEDS: ipratropium 0.5 MG/2.5ML nebule IH SCH ×4 (03:01→20:34)
[2019-11-13] MEDS: DOBUTamine-DoBUTrex 500mg/D5W 250 ML IV SCH (05:25)
--- NOTE | 2019-11-13 05:25 | NUR ---
Patient's BP was 184/65. Administered PRN dose of 20mg Nifedipine.
[2019-11-13 06:07] LABS: BASOPHILS % (AUTO) 0.5 % (0-1); EOSINOPHILS % (AUTO) 0.2 % (0-6); HEMATOCRIT 34.4 % (42.0-52.0); HEMOGLOBIN 11.1 g/dl (14.0-17.9); LYMPHOCYTES # (AUTO) 0.4 X10'3 (1.1-4.8); LYMPHOCYTES % (AUTO) 5.8 % (21-51); MEAN CORPUSCULAR HEMOGLOBIN 32.7 PG (27.0-31.0); MEAN CORPUSCULAR HGB CONC 32.3 g/dL (33.0-36.5); MEAN CORPUSCULAR VOLUME 101.3 FL (78-98); MEAN PLATELET VOLUME 7.1 FL (7.4-10.4); MONOCYTES # (AUTO) 0.1 X10'3 (0-0.9); MONOCYTES % (AUTO) 1.7 % (2-12); NEUTROPHILS # (AUTO) 6.7 X10'3 (1.8-7.7); NEUTROPHILS % (AUTO) 91.8 % (42-75); PLATELET COUNT 266 X10'3 (140-440); RED BLOOD COUNT 3.39 X10'6 (4.70-6.10); RED CELL DISTRIBUTION WIDTH 18.2 % (11.5-14.5); WHITE BLOOD COUNT 7.3 X10'3 (4.5-11.0)
[2019-11-13 06:28] LABS: ALANINE AMINOTRANSFERASE 21 U/L (12-78); ALBUMIN 3.5 G/DL (3.4-5.0); ALKALINE PHOSPHATASE 78 IU/L (46-116); ANION GAP 9 (8-16); ASPARTATE AMINO TRANSFERASE 11 U/L (10-37); BILIRUBIN,TOTAL 0.4 MG/DL (0.1-1.0); BLOOD UREA NITROGEN 35 MG/DL (7-18); BUN/CREATININE RATIO 4.1 (5.4-32.0); CALCIUM 10.1 MG/DL (8.5-10.1); CHLORIDE 100 MMOL/L (99-107); CREATININE 8.64 MG/DL (0.60-1.10); GLUCOSE 166 MG/DL (70-104); MAGNESIUM 2.6 MG/DL (1.5-2.4); PHOSPHORUS 6.6 MG/DL (2.3-4.5); POTASSIUM 5.9 MMOL/L (3.5-5.1); SODIUM 139 MMOL/L (135-145); TOTAL CARBON DIOXIDE 30.2 MMOL/L (24-32); TOTAL PROTEIN 6.9 G/DL (6.4-8.2); eGFR 6 ML/MIN
--- NOTE | 2019-11-13 07:17 | NUR ---
Problems reprioritized. Patient report given, questions answered & plan of care reviewed with Pat RN. Patient was resting comfortably during report and no acute distress was noted.
[2019-11-13] MEDS: budesonide 0.5mg/2ml UD nebule IH SCH ×2 (07:58→20:34)
[2019-11-13] MEDS: bumetanide 1mg tablet PO SCH ×3 (08:00→20:56)
[2019-11-13] MEDS: heparin, porcine 5000 units/ml vial SQ SCH ×2 (08:00→20:00)
[2019-11-13] MEDS: multivitamins, therapeutics tablet PO SCH (08:17)
[2019-11-13] MEDS: metoprolol tartrate 12.5mg (1/2 tablet) PO SCH (08:18)
[2019-11-13] MEDS: docusate sod 250mg capsule PO SCH ×2 (08:19→20:25)
[2019-11-13] MEDS: insulin Lispro (HumaLOG) vial - multi-dose SQ SCH (08:44)
[2019-11-13] MEDS ORDERED: OMEP40CA13 PO (10:27)
[2019-11-13] MEDS ORDERED: METO-395 PO (10:27)
[2019-11-13] MEDS ORDERED: VERA120T9 PO ×2 (10:27→18:18)
[2019-11-13] MEDS ORDERED: GLIP10TA11 PO (10:27)
[2019-11-13] MEDS ORDERED: ZAR5T PO (10:27)
[2019-11-13] MEDS: HYDROcodone/acetaminophen 5mg/325mg tablet PO PRN (12:30)
--- NOTE | 2019-11-13 13:12 | NUR ---
Patient Blood glucose was 80 before lunch, patient ate approx. 6 carbs and does not qualify for insulin per protocol, in addition the patient does not want any insulin. Will not treat as he doesn't meet out protocol, and will continue to monitor.
[2019-11-13] MEDS ORDERED: FOSI10TA4 PO (18:17)
[2019-11-13] MEDS ORDERED: LORA-269 PO (18:18)
--- NOTE | 2019-11-13 18:41 | NUR ---
Patient in room U 3014. I have received report from Belkis RN and had the opportunity to ask questions and assume patient care. Patient was sitting up in bed eating dinner during report and no acute distress was noted.
[2019-11-13] MEDS: insulin glargine (Lantus) pen - multi-dose SQ SCH (21:01)
--- NOTE | 2019-11-13 21:40 | NUR ---
Patient's BP was 186/69. Administered PRN dose 20mg of Nifedipine. Will continue to monitor.
[2019-11-14] VITALS (8 sets, daily range): BP systolic 119–184; BP diastolic 48–89
[2019-11-14] MEDS: DOBUTamine-DoBUTrex 500mg/D5W 250 ML IV SCH ×3 (00:50→21:27)
[2019-11-14] MEDS: methylPREDNISolone sod succ 125mg/2ml vial IV SCH ×4 (01:01→19:09)
[2019-11-14] MEDS: calcium acetate 667mg (PhosLO) capsule PO SCH ×3 (01:02→16:43)
[2019-11-14] MEDS: ipratropium 0.5 MG/2.5ML nebule IH SCH ×4 (02:09→19:56)
[2019-11-14 05:57] LABS: BASOPHILS % (AUTO) 0.2 % (0-1); EOSINOPHILS % (AUTO) 0 % (0-6); HEMATOCRIT 34.6 % (42.0-52.0); LYMPHOCYTES # (AUTO) 0.4 X10'3 (1.1-4.8); LYMPHOCYTES % (AUTO) 5.1 % (21-51); MEAN CORPUSCULAR HEMOGLOBIN 32.1 PG (27.0-31.0); MEAN CORPUSCULAR HGB CONC 31.8 g/dL (33.0-36.5); MEAN PLATELET VOLUME 7.5 FL (7.4-10.4); MONOCYTES # (AUTO) 0.1 X10'3 (0-0.9); MONOCYTES % (AUTO) 1.7 % (2-12); NEUTROPHILS # (AUTO) 6.8 X10'3 (1.8-7.7); PLATELET COUNT 256 X10'3 (140-440); RED BLOOD COUNT 3.42 X10'6 (4.70-6.10); RED CELL DISTRIBUTION WIDTH 18.2 % (11.5-14.5); WHITE BLOOD COUNT 7.3 X10'3 (4.5-11.0)
--- NOTE | 2019-11-14 06:00 | NUR ---
Patient in room PCU 3014. I have received report from Ina CAIN and had the opportunity to ask questions and assume patient care.
[2019-11-14 06:16] LABS: ALANINE AMINOTRANSFERASE 21 U/L (12-78); ALBUMIN 3.5 G/DL (3.4-5.0); ALBUMIN/GLOBULIN RATIO 1.1 (1.1-1.5); ALKALINE PHOSPHATASE 76 IU/L (46-116); ANION GAP 11 (8-16); ASPARTATE AMINO TRANSFERASE 17 U/L (10-37); BILIRUBIN,TOTAL 0.3 MG/DL (0.1-1.0); BLOOD UREA NITROGEN 62 MG/DL (7-18); BUN/CREATININE RATIO 5.8 (5.4-32.0); CALCIUM 10.6 MG/DL (8.5-10.1); CHLORIDE 95 MMOL/L (99-107); CREATININE 10.71 MG/DL (0.60-1.10); GLUCOSE 235 MG/DL (70-104); MAGNESIUM 2.6 MG/DL (1.5-2.4); PHOSPHORUS 7.9 MG/DL (2.3-4.5); SODIUM 135 MMOL/L (135-145); TOTAL CARBON DIOXIDE 28.7 MMOL/L (24-32); TOTAL PROTEIN 6.7 G/DL (6.4-8.2); eGFR 5 ML/MIN
--- NOTE | 2019-11-14 06:26 | NUR ---
Problems reprioritized. Patient report given, questions answered & plan of care reviewed with Yolanda CAIN. Patient was asleep during report and no acute distress was noted.
[2019-11-14 06:27] LABS: POTASSIUM 6.1 MMOL/L (3.5-5.1)
--- NOTE | 2019-11-14 06:36 | NUR ---
Critical K or 6.[address] Johnson. No new orders because patient is scheduled for HD today.
[2019-11-14] MEDS: heparin, porcine 5000 units/ml vial SQ SCH ×3 (07:50→20:00)
[2019-11-14] MEDS: LORazepam 0.5 MG tablet PO PRN (07:51)
[2019-11-14] MEDS: docusate sod 250mg capsule PO SCH ×2 (07:51→19:09)
[2019-11-14] MEDS: multivitamins, therapeutics tablet PO SCH (07:51)
[2019-11-14] MEDS: LORazepam 1 MG tablet PO PRN (07:58)
[2019-11-14] MEDS: bumetanide 1mg tablet PO SCH ×2 (08:00→19:09)
[2019-11-14] MEDS: metoprolol succinate 25mg (24-HOUR) SR. Tablet PO SCH (08:00)
[2019-11-14] MEDS ORDERED: normal saline 1000ml 250 ML IV PRN (08:00)
[2019-11-14] MEDS ORDERED: normal saline 1000ml 100 ML IV PRN (08:00)
[2019-11-14] MEDS: lisinopril 10 MG tablet PO SCH (08:00)
[2019-11-14] MEDS ORDERED: LIDOcaine 1% (10mg/ml) 2ml vial SQ ONE (08:00)
[2019-11-14] MEDS: verapamil SR 120mg (sust. release) tab PO SCH (08:00)
[2019-11-14] MEDS: metolazone 2.5mg tablet PO SCH (08:00)
[2019-11-14] MEDS: insulin Lispro (HumaLOG) vial - multi-dose SQ SCH ×3 (08:15→19:03)
[2019-11-14] MEDS: budesonide 0.5mg/2ml UD nebule IH SCH ×2 (09:42→19:56)
--- NOTE | 2019-11-14 15:32 | NUR ---
pT. REFUSED 1500 SVN
--- NOTE | 2019-11-14 18:07 | NUR ---
Problems reprioritized. Patient report given, questions answered & plan of care reviewed with Ina CAIN.
[2019-11-14] MEDS: HYDROcodone/acetaminophen 5mg/325mg tablet PO PRN (19:06)
[2019-11-14] MEDS: insulin glargine (Lantus) pen - multi-dose SQ SCH (21:37)
[2019-11-15] MEDS: methylPREDNISolone sod succ 125mg/2ml vial IV SCH ×4 (01:06→20:00)
[2019-11-15] MEDS: calcium acetate 667mg (PhosLO) capsule PO SCH ×3 (01:06→15:36)
[2019-11-15 02:00] VITALS: BP 154/88
[2019-11-15] MEDS: ipratropium 0.5 MG/2.5ML nebule IH SCH ×4 (02:38→20:28)
[2019-11-15 06:07] LABS: BASOPHILS % (AUTO) 0 % (0-1); EOSINOPHILS % (AUTO) 0.1 % (0-6); HEMATOCRIT 36.9 % (42.0-52.0); HEMOGLOBIN 11.8 g/dl (14.0-17.9); LYMPHOCYTES # (AUTO) 0.3 X10'3 (1.1-4.8); LYMPHOCYTES % (AUTO) 3.5 % (21-51); MEAN CORPUSCULAR HEMOGLOBIN 32.8 PG (27.0-31.0); MEAN CORPUSCULAR HGB CONC 31.9 g/dL (33.0-36.5); MEAN CORPUSCULAR VOLUME 102.7 FL (78-98); MEAN PLATELET VOLUME 7.4 FL (7.4-10.4); MONOCYTES # (AUTO) 0.2 X10'3 (0-0.9); MONOCYTES % (AUTO) 2.7 % (2-12); NEUTROPHILS # (AUTO) 7.5 X10'3 (1.8-7.7); NEUTROPHILS % (AUTO) 93.7 % (42-75); PLATELET COUNT 251 X10'3 (140-440); RED BLOOD COUNT 3.59 X10'6 (4.70-6.10); RED CELL DISTRIBUTION WIDTH 18.2 % (11.5-14.5); WHITE BLOOD COUNT 8.1 X10'3 (4.5-11.0)
[2019-11-15 06:11] LABS: ALANINE AMINOTRANSFERASE 26 U/L (12-78); ALBUMIN 3.5 G/DL (3.4-5.0); ALBUMIN/GLOBULIN RATIO 1.1 (1.1-1.5); ALKALINE PHOSPHATASE 85 IU/L (46-116); ANION GAP 10 (8-16); ASPARTATE AMINO TRANSFERASE 14 U/L (10-37); BILIRUBIN,TOTAL 0.3 MG/DL (0.1-1.0); BLOOD UREA NITROGEN 49 MG/DL (7-18); BUN/CREATININE RATIO 6.1 (5.4-32.0); CALCIUM 9.8 MG/DL (8.5-10.1); CHLORIDE 97 MMOL/L (99-107); CREATININE 8.04 MG/DL (0.60-1.10); GLUCOSE 250 MG/DL (70-104); MAGNESIUM 2.5 MG/DL (1.5-2.4); PHOSPHORUS 6.9 MG/DL (2.3-4.5); POTASSIUM 5.3 MMOL/L (3.5-5.1); SODIUM 136 MMOL/L (135-145); TOTAL CARBON DIOXIDE 29.3 MMOL/L (24-32); TOTAL PROTEIN 6.7 G/DL (6.4-8.2); eGFR 7 ML/MIN
--- NOTE | 2019-11-15 06:13 | NUR ---
Patient in room PCU 3014. I have received report from Ina CAIN and had the opportunity to ask questions and assume patient care.
--- NOTE | 2019-11-15 06:13 | NUR ---
Patient in room PCU 3014. I have received report from Ina CAIN and had the opportunity to ask questions and assume patient care.
--- NOTE | 2019-11-15 06:32 | NUR ---
Problems reprioritized. Patient report given, questions answered & plan of care reviewed with Yolanda CAIN. Patient was sitting up at his bedside during report and no acute distress was noted.
[2019-11-15 07:00] VITALS: BP 160/69
[2019-11-15] MEDS: heparin, porcine 5000 units/ml vial SQ SCH ×2 (08:00→20:00)
[2019-11-15] MEDS: metolazone 2.5mg tablet PO SCH (08:27)
[2019-11-15] MEDS: verapamil SR 120mg (sust. release) tab PO SCH (08:27)
[2019-11-15] MEDS: multivitamins, therapeutics tablet PO SCH (08:27)
[2019-11-15] MEDS: docusate sod 250mg capsule PO SCH ×2 (08:27→22:05)
[2019-11-15] MEDS: metoprolol succinate 25mg (24-HOUR) SR. Tablet PO SCH (08:27)
[2019-11-15] MEDS: bumetanide 1mg tablet PO SCH ×2 (08:27→22:06)
[2019-11-15] MEDS: lisinopril 10 MG tablet PO SCH (08:28)
[2019-11-15] MEDS: insulin Lispro (HumaLOG) vial - multi-dose SQ SCH ×2 (08:43→13:24)
[2019-11-15] MEDS: HYDROcodone/acetaminophen 5mg/325mg tablet PO PRN (08:52)
[2019-11-15] MEDS: budesonide 0.5mg/2ml UD nebule IH SCH ×2 (09:14→20:28)
[2019-11-15] MEDS: DOBUTamine-DoBUTrex 500mg/D5W 250 ML IV SCH (11:55)
[2019-11-15] MEDS ORDERED: DOBUTamine-DoBUTrex 500mg/D5W 250 ML IV SCH (15:25)
--- NOTE | 2019-11-15 15:25 | NUR ---
Malnutrition consult, patient's weight currently is 114 kg documented as ED weight. Weight documented as one year ago as 114 kg. No weight change in the past year. Admitted with h/o ESRD with HD. Has 3+ BLE edema likely r/t ESRD. Appetite is fair, ate 100% at two meals, eating 25-49%, unable to eat during dialysis. No malnutrition at this time. Addendum: 11/15/19 at [address] Amended: Links added.
--- NOTE | 2019-11-15 17:45 | NUR ---
I received a telephone order from Dr. Zaman for lower extremity PIV. Charge Janak tried to put one in and deemed lower BLE too edematous to place an IV . He then tried to place one in his right arm and was unable to do so. I called DR. Zaman again to see how he wanted us to proceed. He said if he is stable we can figure it out tomorrow and the dobutamine can stay on hold. Pt vitals have remained stable. Vitals HR 95, Sp02 97% on RA, R 12, BP 146/79 No pain.
[2019-11-15 18:00] VITALS: BP 167/91
--- NOTE | 2019-11-15 18:24 | NUR ---
Problems reprioritized. Patient report given, questions answered & plan of care reviewed with Carmina CAIN and Sammie RN.
[2019-11-15] MEDS: insulin glargine (Lantus) pen - multi-dose SQ SCH (21:00)
[2019-11-15 22:00] VITALS: BP 128/73
[2019-11-16] MEDS: calcium acetate 667mg (PhosLO) capsule PO SCH ×4 (01:55→23:54)
[2019-11-16] MEDS: ipratropium 0.5 MG/2.5ML nebule IH SCH ×4 (02:26→20:41)
[2019-11-16] MEDS: methylPREDNISolone sod succ 125mg/2ml vial IV SCH ×4 (02:27→16:01)
[2019-11-16 03:00] VITALS: BP 137/85
--- NOTE | 2019-11-16 04:19 | NUR ---
pt refused 2100 blood sugar
[2019-11-16 06:06] LABS: ALANINE AMINOTRANSFERASE 27 U/L (12-78); ALBUMIN 3.4 G/DL (3.4-5.0); ALBUMIN/GLOBULIN RATIO 1.2 (1.1-1.5); ALKALINE PHOSPHATASE 77 IU/L (46-116); ANION GAP 12 (8-16); ASPARTATE AMINO TRANSFERASE 16 U/L (10-37); BILIRUBIN,TOTAL 0.3 MG/DL (0.1-1.0); BLOOD UREA NITROGEN 76 MG/DL (7-18); BUN/CREATININE RATIO 7.8 (5.4-32.0); CHLORIDE 96 MMOL/L (99-107); CREATININE 9.71 MG/DL (0.60-1.10); GLUCOSE 191 MG/DL (70-104); MAGNESIUM 2.3 MG/DL (1.5-2.4); PHOSPHORUS 7.1 MG/DL (2.3-4.5); POTASSIUM 5.8 MMOL/L (3.5-5.1); SODIUM 135 MMOL/L (135-145); TOTAL CARBON DIOXIDE 27.4 MMOL/L (24-32); TOTAL PROTEIN 6.3 G/DL (6.4-8.2); eGFR 5 ML/MIN
[2019-11-16 06:12] LABS: BASOPHILS % (AUTO) 0.2 % (0-1); EOSINOPHILS % (AUTO) 0 % (0-6); HEMOGLOBIN 12.1 g/dl (14.0-17.9); LYMPHOCYTES # (AUTO) 0.4 X10'3 (1.1-4.8); LYMPHOCYTES % (AUTO) 3.8 % (21-51); MEAN CORPUSCULAR HEMOGLOBIN 32.9 PG (27.0-31.0); MEAN CORPUSCULAR HGB CONC 32.5 g/dL (33.0-36.5); MEAN CORPUSCULAR VOLUME 101.1 FL (78-98); MEAN PLATELET VOLUME 7.4 FL (7.4-10.4); MONOCYTES # (AUTO) 0.6 X10'3 (0-0.9); NEUTROPHILS # (AUTO) 10.1 X10'3 (1.8-7.7); PLATELET COUNT 258 X10'3 (140-440); RED BLOOD COUNT 3.66 X10'6 (4.70-6.10); RED CELL DISTRIBUTION WIDTH 18.1 % (11.5-14.5); WHITE BLOOD COUNT 11.1 X10'3 (4.5-11.0)
--- NOTE | 2019-11-16 06:35 | NUR ---
[place]ee documentation: I have reviewed and agree with all interventions, assessments performed and documented by Sammie CAIN.[place] Medication Administration: For this medication-pass time frame, all medication were reviewed, dispensed, administered and documented per hospital policy by Sammie CAIN with Carmina CAIN.
--- NOTE | 2019-11-16 06:36 | NUR ---
pt had wet cough last few hours,but it has calmed down now.
--- NOTE | 2019-11-16 06:36 | NUR ---
Problems reprioritized. Patient report given, questions answered & plan of care reviewed with Sapphire CAIN.
[2019-11-16 07:00] VITALS: BP 124/58
--- NOTE | 2019-11-16 07:29 | NUR ---
Patient in room PCU 3014. I have received report from Carmina CAIN and Sammie RN and had the opportunity to ask questions and assume patient care.
[2019-11-16] MEDS: bumetanide 1mg tablet PO SCH ×2 (08:00→21:12)
[2019-11-16] MEDS: heparin, porcine 5000 units/ml vial SQ SCH ×2 (08:00→20:00)
[2019-11-16] MEDS: HYDROcodone/acetaminophen 5mg/325mg tablet PO PRN (08:01)
[2019-11-16] MEDS: verapamil SR 120mg (sust. release) tab PO SCH (08:02)
[2019-11-16] MEDS: docusate sod 250mg capsule PO SCH ×2 (08:03→21:13)
[2019-11-16] MEDS: lisinopril 10 MG tablet PO SCH (08:05)
[2019-11-16] MEDS: multivitamins, therapeutics tablet PO SCH (08:05)
[2019-11-16] MEDS: metoprolol succinate 25mg (24-HOUR) SR. Tablet PO SCH (08:06)
[2019-11-16] MEDS: metolazone 2.5mg tablet PO SCH (08:09)
[2019-11-16] MEDS: budesonide 0.5mg/2ml UD nebule IH SCH ×2 (10:00→20:41)
[2019-11-16] MEDS ORDERED: normal saline 1000ml 250 ML IV PRN (10:18)
[2019-11-16] MEDS ORDERED: LIDOcaine 1% (10mg/ml) 2ml vial SQ ONE (10:20)
[2019-11-16] MEDS: LORazepam 1 MG tablet PO PRN (10:32)
[2019-11-16 11:00] VITALS: BP 150/75
--- NOTE | 2019-11-16 12:23 | NUR ---
Pt refused 0700 blood sugar
--- NOTE | 2019-11-16 12:24 | NUR ---
Pt refused 1200 blood sugar
[2019-11-16 15:00] VITALS: BP 110/68
--- NOTE | 2019-11-16 16:18 | NUR ---
IV infiltrated, patient refuses new IV. New orders from Dr. Hodges to d/c IV Solumedrol 80 mg q6h and give PO Prednisone 60 mg once.
[2019-11-16] MEDS ORDERED: predniSONE 20 mg tablet PO ONE (16:20)
--- NOTE | 2019-11-16 17:41 | NUR ---
Pt refused 1700 blood sugar.
[2019-11-16 18:00] VITALS: BP 144/63
--- NOTE | 2019-11-16 18:17 | NUR ---
Problems reprioritized. Patient report given, questions answered & plan of care reviewed with Cabrera CAIN and Sammie CAIN.
[2019-11-16] MEDS: insulin glargine (Lantus) pen - multi-dose SQ SCH (21:00)
--- NOTE | 2019-11-16 21:00 | NUR ---
pt refusing BG checks and VS, attempted to educate pt, pt refused education. MD dietrich.
[2019-11-16 22:00] VITALS: BP 118/54
[2019-11-17] MEDS: ipratropium 0.5 MG/2.5ML nebule IH SCH ×4 (02:00→20:27)
--- NOTE | 2019-11-17 05:54 | NUR ---
[place]rientee documentation: I have reviewed and agree with all interventions, assessments performed and documented by Sammie CAIN .
[2019-11-17 06:00] VITALS: BP 158/87
--- NOTE | 2019-11-17 06:13 | NUR ---
Problems reprioritized. Patient report given, questions answered & plan of care reviewed with Lexii CAIN.
[2019-11-17 06:16] LABS: BASOPHILS % (AUTO) 0.1 % (0-1); EOSINOPHILS % (AUTO) 0 % (0-6); HEMATOCRIT 38.5 % (42.0-52.0); HEMOGLOBIN 12.6 g/dl (14.0-17.9); LYMPHOCYTES # (AUTO) 0.4 X10'3 (1.1-4.8); LYMPHOCYTES % (AUTO) 4.3 % (21-51); MEAN CORPUSCULAR HEMOGLOBIN 33.1 PG (27.0-31.0); MEAN CORPUSCULAR HGB CONC 32.7 g/dL (33.0-36.5); MEAN CORPUSCULAR VOLUME 101.4 FL (78-98); MEAN PLATELET VOLUME 7.3 FL (7.4-10.4); MONOCYTES # (AUTO) 0.6 X10'3 (0-0.9); MONOCYTES % (AUTO) 7.4 % (2-12); NEUTROPHILS # (AUTO) 7.5 X10'3 (1.8-7.7); NEUTROPHILS % (AUTO) 88.2 % (42-75); PLATELET COUNT 215 X10'3 (140-440); RED CELL DISTRIBUTION WIDTH 18.3 % (11.5-14.5); WHITE BLOOD COUNT 8.5 X10'3 (4.5-11.0)
--- NOTE | 2019-11-17 06:20 | NUR ---
Patient in room PCU 3014. I have received report from Joe Rees had the opportunity to ask questions and assume patient care.
[2019-11-17 06:32] LABS: ALANINE AMINOTRANSFERASE 30 U/L (12-78); ALKALINE PHOSPHATASE 73 IU/L (46-116); ANION GAP 8 (8-16); ASPARTATE AMINO TRANSFERASE 10 U/L (10-37); BILIRUBIN,TOTAL 0.3 MG/DL (0.1-1.0); BLOOD UREA NITROGEN 60 MG/DL (7-18); CALCIUM 9.4 MG/DL (8.5-10.1); CHLORIDE 98 MMOL/L (99-107); CREATININE 7.47 MG/DL (0.60-1.10); GLUCOSE 262 MG/DL (70-104); MAGNESIUM 2.2 MG/DL (1.5-2.4); PHOSPHORUS 7.7 MG/DL (2.3-4.5); POTASSIUM 5.3 MMOL/L (3.5-5.1); SODIUM 136 MMOL/L (135-145); TOTAL CARBON DIOXIDE 29.6 MMOL/L (24-32); TOTAL PROTEIN 5.9 G/DL (6.4-8.2); eGFR 7 ML/MIN
[2019-11-17 06:47] LABS: PLATELET ESTIMATE NORMAL
[2019-11-17 06:48] LABS: ANISOCYTOSIS 2+
[2019-11-17] MEDS: calcium acetate 667mg (PhosLO) capsule PO SCH ×2 (07:32→17:02)
[2019-11-17] MEDS: docusate sod 250mg capsule PO SCH ×2 (07:33→19:52)
[2019-11-17] MEDS: metoprolol succinate 25mg (24-HOUR) SR. Tablet PO SCH (07:33)
[2019-11-17] MEDS: metolazone 2.5mg tablet PO SCH (07:33)
[2019-11-17] MEDS: verapamil SR 120mg (sust. release) tab PO SCH (07:33)
[2019-11-17] MEDS: multivitamins, therapeutics tablet PO SCH (07:34)
[2019-11-17] MEDS: bumetanide 1mg tablet PO SCH ×2 (07:36→19:58)
[2019-11-17] MEDS: heparin, porcine 5000 units/ml vial SQ SCH ×2 (07:38→19:54)
[2019-11-17] MEDS: lisinopril 10 MG tablet PO SCH (07:40)
[2019-11-17] MEDS: budesonide 0.5mg/2ml UD nebule IH SCH ×2 (08:32→20:27)
[2019-11-17 11:00] VITALS: BP 100/59
--- NOTE | 2019-11-17 12:50 | NUR ---
New orders from [facility] for Lactulose 30cc TID until pt has bowel movement and not having a PIV is okay
[2019-11-17] MEDS: HYDROcodone/acetaminophen 5mg/325mg tablet PO PRN (14:13)
--- NOTE | 2019-11-17 14:45 | NUR ---
New orders from [facility] for Zofran ODT 8mg q. 8hrs PRN
[2019-11-17] MEDS: ondansetron 4mg rapidly disintigrating tab PO PRN (14:59)
[2019-11-17 15:00] VITALS: BP 100/56
--- NOTE | 2019-11-17 15:02 | NUR ---
Initial: Pt admit with cardiorenal syndrome with renal failure on dialysis and hyperkalemia. Pt on a renal CHO controlled diet with average 75-100% PO intake. Phos remains elevated, pt receiving routine phos binder. LBM 11/12. Pt receiving routine Colace and routine Lactulose added to med list today. No nutrition intervention implemented at this time. Will continue to follow. Recommendations: 1) Continue with renal CHO controlled diet 2) Monitor need for additional protein 3) Continue routine Phos binder 4) Routine bowel care 5) Scaled weights per rx Addendum: 11/17/19 at [address] Amended: Links added.
[2019-11-17 18:00] VITALS: BP 126/68
--- NOTE | 2019-11-17 18:22 | NUR ---
Problems reprioritized. Patient report given, questions answered & plan of care reviewed with ilana Hernández.
--- NOTE | 2019-11-17 18:25 | NUR ---
Received report from primary care nurse Lexii CAIN. Assumed patient care. Patient is awake and alert on 4LNC. In no apparent distress. Call light and items of frequent use within reach. Will continue to monitor for changes.
--- NOTE | 2019-11-17 19:58 | NUR ---
patient not producing urine
[2019-11-17] MEDS: insulin glargine (Lantus) pen - multi-dose SQ SCH (20:05)
[2019-11-17] MEDS: lactulose 20gm/30ml cup PO SCH (20:08)
[2019-11-17 22:00] VITALS: BP 113/60
--- NOTE | 2019-11-17 22:05 | NUR ---
Reported to PA March regarding patient refusing medications and blood glucose monitoring. RN to notify MD during rounding as well.
[2019-11-18] MEDS: calcium acetate 667mg (PhosLO) capsule PO SCH ×5 (00:32→23:26)
--- NOTE | 2019-11-18 00:41 | NUR ---
Patient refused midnight lazarus Betancur, "Im not eating and I didnt eat dinner and Im probably not going to eat breakfast."
[2019-11-18] MEDS: HYDROcodone/acetaminophen 5mg/325mg tablet PO PRN ×4 (01:55→22:37)
[2019-11-18 02:00] VITALS: BP 108/66
[2019-11-18] MEDS: ipratropium 0.5 MG/2.5ML nebule IH SCH ×4 (02:34→20:00)
--- NOTE | 2019-11-18 06:20 | NUR ---
Patient in room PCU 3014. I have received report from Betty CAIN and had the opportunity to ask questions and assume patient care.
--- NOTE | 2019-11-18 06:21 | NUR ---
Reported off to Gabbi RN. Patient is awake and alert on 4LNC. In no apparent distress. Call light and items of frequent use within reach.
[2019-11-18 07:00] VITALS: BP 102/63
[2019-11-18] MEDS: docusate sod 250mg capsule PO SCH ×2 (08:00→20:00)
[2019-11-18] MEDS: heparin, porcine 5000 units/ml vial SQ SCH ×2 (08:00→20:00)
[2019-11-18] MEDS: budesonide 0.5mg/2ml UD nebule IH SCH ×2 (08:33→20:00)
[2019-11-18] MEDS: lactulose 20gm/30ml cup PO SCH (09:04)
[2019-11-18] MEDS: verapamil SR 120mg (sust. release) tab PO SCH (09:04)
[2019-11-18] MEDS: metoprolol succinate 25mg (24-HOUR) SR. Tablet PO SCH (09:05)
[2019-11-18] MEDS: multivitamins, therapeutics tablet PO SCH (09:05)
[2019-11-18] MEDS: lisinopril 10 MG tablet PO SCH (09:06)
[2019-11-18] MEDS ORDERED: LIDOcaine 1% (10mg/ml) 2ml vial SQ ONE (09:20)
[2019-11-18] MEDS: metolazone 2.5mg tablet PO SCH (10:24)
[2019-11-18] MEDS: bumetanide 1mg tablet PO SCH ×2 (10:25→20:00)
[2019-11-18] MEDS: LORazepam 0.5 MG tablet PO PRN ×3 (10:25→22:45)
[2019-11-18 11:00] VITALS: BP 148/52
--- NOTE | 2019-11-18 12:27 | NUR ---
Called Dr. Hodges in regards to using soft restraints on patient.
--- NOTE | 2019-11-18 12:52 | NUR ---
Called Dr. Hodges in regards to patient complaining of abdominal pain. New orders to stop lactulose and start Go lightly until pt has BM. Pt has verbalized to want to go peacefully and [facility] is made aware. Will continue to monitor.
[2019-11-18 15:00] VITALS: BP 132/65
--- NOTE | 2019-11-18 15:29 | NUR ---
Called Dr. Hodges and left message, in regards to patient request some sort of enema. Will contiue to monitor.
[2019-11-18 15:46] LABS: HBSAG SCREEN Negative (Negative)
--- NOTE | 2019-11-18 15:46 | NUR ---
Patient has refused all accu checks and insulin with Heparin as well. Patient also refused some medication due to not eating or wanting to take them. MD is aware. Will continue to monitor.
--- NOTE | 2019-11-18 16:56 | NUR ---
Attempted to give soap enema and patient yelled out not wanting the treatment. Patient non compliant. Patient was given lorazepam and norco and is currently in bed sleeping. No apparent issues. Will continue to monitor.
--- NOTE | 2019-11-18 18:22 | NUR ---
Problems reprioritized. Patient report given, questions answered & plan of care reviewed with Beverly CAIN.
[2019-11-18] MEDS: insulin glargine (Lantus) pen - multi-dose SQ SCH (21:00)
[2019-11-18] MEDS: ondansetron 4mg rapidly disintigrating tab PO PRN (22:48)
[2019-11-18 22:52] VITALS: BP 88/42
[2019-11-19] MEDS: ipratropium 0.5 MG/2.5ML nebule IH SCH ×4 (02:00→20:47)
--- NOTE | 2019-11-19 04:45 | NUR ---
Noncompliant. Alert and oriented x4. Patient refused his oxygen, medications, blood sugar checks, food, and vital signs despite thorough education from me and the charge nurse. Patient keeps stating, " I just want to ." His called and asked for an update; the charge nurse talked to her about him saying he wants to and refusing care. replied her and her has talked at home about him dying and they both agreed to that option.
--- NOTE | 2019-11-19 06:13 | NUR ---
Problems reprioritized. Patient report given, questions answered & plan of care reviewed with ANT Seo.
[2019-11-19 07:00] VITALS: BP 101/66
[2019-11-19] MEDS: multivitamins, therapeutics tablet PO SCH (08:00)
[2019-11-19] MEDS: metolazone 2.5mg tablet PO SCH (08:00)
[2019-11-19] MEDS: verapamil SR 120mg (sust. release) tab PO SCH (08:00)
[2019-11-19] MEDS: bumetanide 1mg tablet PO SCH ×3 (08:00→21:28)
[2019-11-19] MEDS: lisinopril 10 MG tablet PO SCH (08:00)
[2019-11-19] MEDS: metoprolol succinate 25mg (24-HOUR) SR. Tablet PO SCH (08:00)
[2019-11-19] MEDS: docusate sod 250mg capsule PO SCH ×3 (08:00→21:28)
[2019-11-19] MEDS ORDERED: PEG 3350/Na sulf,bicarb,Cl/KCl oral sol 4 liter bottle PO SCH (08:00)
[2019-11-19] MEDS: heparin, porcine 5000 units/ml vial SQ SCH ×3 (08:00→21:29)
[2019-11-19] MEDS: calcium acetate 667mg (PhosLO) capsule PO SCH ×2 (08:00→16:00)
[2019-11-19] MEDS: budesonide 0.5mg/2ml UD nebule IH SCH ×2 (08:37→20:47)
--- NOTE | 2019-11-19 08:45 | NUR ---
Patient refusing all care of health rn critical care. Patient currently in bed bed refusing to eat or drink or take medications. Patients appears pale/ dusky and is unable to answer all questions. Patient is stating, "he wants to go home to [facility] and ". MD will be made aware when rounds are made. will be notified as well. Discharge planning was ordered yesterday from [facility]. Patient refused accu checks and vital signs. A/O X3 and is unable to decided what he wants to do. Bed is in low lock position, skid socks on and bed alarm on as well. Will continue to monitor.
--- NOTE | 2019-11-19 09:48 | NUR ---
Patient refused RT, no breathing treatments were able to be done due to patient refusing, saying let me go home.
[2019-11-19 11:00] VITALS: BP 91/46
--- NOTE | 2019-11-19 11:00 | NUR ---
Called Case management spoke with Su to advice on Hospice care. Called Radha to inform MD that patient and patients want patient to come home on hospice [facility]. Radha will evaluate during rounds and then notify Case management and .
[2019-11-19] MEDS ORDERED: DOBUTamine-DoBUTrex 500mg/D5W 250 ML IV SCH (13:20)
--- NOTE | 2019-11-19 14:25 | NUR ---
Dr. Garcia and [facility] at bedside with patient and nurse. Patient was talked to about care and the plan going forward. MD ordered a Dobutamine drip started at 5mcg to see if it helps patient. We will continue to monitor and do all interventions to help provide health.
[2019-11-19 15:00] VITALS: BP 105/52
--- NOTE | 2019-11-19 18:22 | NUR ---
Problems reprioritized. Patient report given, questions answered & plan of care reviewed with Julieth CAIN.
[2019-11-19 19:00] VITALS: BP 103/57
[2019-11-19] MEDS: insulin glargine (Lantus) pen - multi-dose SQ SCH (21:00)
--- NOTE | 2019-11-19 21:55 | NUR ---
telecom field technician notified staff that pt went into V-tach, staff entered room and observed pt was unresponsive. immediately checked pt for pulse via, radial, femoral, and carotid. no pulse found by 3 different nurses. pt is DNR and had expressed his wishes to for the past few days to multiple staff members. was also aware of the pt's wishes and verbalized agreement with pt's wishes.
--- NOTE | 2019-11-20 00:29 | NUR ---
PATIENT REFUSED MEDS, ACCUCHECK AND CARE IN GENERAL-AT 2155 CHANGE IN CONDITION--QUIT BREATHING--RESPIRATORY ARREST VIOLETTA WOLFF DIRECTOR OF RECRUITMENT AND ADMISSIONS NOTIFIED, FAMILY NOTIFIED, DONOR DARLINGWOEK NOTIFIED TWO RNS JOSE LUIS DELGADO AND COURTNEY BODY PREPARED FOR MORTUARY PERSONAL EFFECTS TO GO WITH FAMILY IN AM $54.00 IN [employer] ARE IN [place] REQUESTED TO BE PICKED UP IN AM BY FAMILY
== END 2019-11-20 02:30 | disposition expired | DRG 291 ==
LOC: ER 09:16 → ED HOLD 11:10 → UNDOADMIN 11:20 → EDBEDREQ 13:24 → PCU 3S 13:59 → ED HOLD 13:59 → PCU 3S 21:20
PROVIDERS: ADMIT Internal Medicine Critical Care Medicine; ATTEND Internal Medicine Critical Care Medicine
PROC: 5A1D70Z Performance of Urinary Filtration, Intermittent, Less than 6 Hours Per Day (ICD-10-PCS; principal; 2019-11-12)
PROC: 5A1D70Z Performance of Urinary Filtration, Intermittent, Less than 6 Hours Per Day (ICD-10-PCS; 2019-11-14)
PROC: 5A1D70Z Performance of Urinary Filtration, Intermittent, Less than 6 Hours Per Day (ICD-10-PCS; 2019-11-16)
PROC: 5A1D70Z Performance of Urinary Filtration, Intermittent, Less than 6 Hours Per Day (ICD-10-PCS; 2019-11-18)
DX: I13.2 Hypertensive heart and chronic kidney disease with heart failure and with stage 5 chronic kidney disease, or end stage renal disease (principal); J96.01 Acute respiratory failure with hypoxia; N18.6 End stage renal disease; N17.9 Acute kidney failure, unspecified; J44.1 Chronic obstructive pulmonary disease with (acute) exacerbation; I47.2 Ventricular tachycardia; I42.9 Cardiomyopathy, unspecified; E66.01 Morbid (severe) obesity due to excess calories; E87.5 Hyperkalemia; F41.0 Panic disorder [episodic paroxysmal anxiety]; G47.30 Sleep apnea, unspecified; I50.82 Biventricular heart failure; E11.22 Type 2 diabetes mellitus with diabetic chronic kidney disease; F40.240 Claustrophobia; I46.9 Cardiac arrest, cause unspecified; Z66 Do not resuscitate; K21.9 Gastro-esophageal reflux disease without esophagitis; F41.1 Generalized anxiety disorder; Z99.2 Dependence on renal dialysis; Z68.35 Body mass index [BMI] 35.0-35.9, adult; Z87.891 Personal history of nicotine dependence; Z91.19 Patient's noncompliance with other medical treatment and regimen
CPT/HCPCS: 36415; 36600; 71045; 76937; 80053; 82803; 82948; 83036; 83605; 83735; 83880; 84100; 85008; 85018; 85025; 87040; 87081; 87340; 93005; 93306; 93308; 94640; 94760; 99291; G0378; J0360; J1250; J1644; J1815; J2001; J2060; J2930; J3490; J7512; J7626